=== PATIENT | female | born 1935 | race African-American/Black ===

== ENCOUNTER 2021-02-12 14:21 | Emergency (ER) | payer MEDICARE, BC ==
[~2021-02-12] VITALS: Ht 160 cm; Wt 70.8 kg
[2021-02-12] MEDS ORDERED: cloNIDine HCL 0.1 MG TAB PO ONE ×2 (14:30→18:00)
[2021-02-12 14:52] LABS: Basophils # (auto) 0.1 10 ^3/uL (0-0.2); Basophils % (auto) 1.1 % (0.0-2.0); Eosinophils # (auto) 0.1 10 ^3/uL (0-0.8); Eosinophils % (auto) 1.2 % (0.0-7.0); Hematocrit 32.6 % (36.0-46.0); Hemoglobin 10.8 g/dL (12.2-16.2); Lymphocytes # (auto) 1.6 10 ^3/uL (0.4-5.4); Lymphocytes % (auto) 22.7 % (10.0-50.0); Mean Corpuscular Hemoglobin 29.9 pg (28.0-32.0); Mean Corpuscular Hgb Conc. 33.2 g/dL (32.0-36.0); Mean Corpuscular Volume 90.2 fL (80.0-100.0); Monocytes # (auto) 0.8 10 ^3/uL (0-1.3); Monocytes % (auto) 11.6 % (0.0-12.0); Neutrophils # (auto) 4.3 10 ^3/uL (1.6-8.6); Neutrophils % (auto) 63.4 % (37.0-80.0); Nucleated Red Blood Cells % 0.1 %; Red Blood Cells 3.61 10^6/uL (4.0-5.20); Red Cell Distribution Width 19.2 % (11.8-14.3); White Blood Cell 6.9 10^3/uL (4.4-10.8)
[2021-02-12 15:07] LABS: Alanine Aminotransferase 18 U/L (13-56); Anion Gap 7 (5-15); Blood Urea Nitrogen 12 mg/dL (7-18); Calcium 9.2 mg/dL (8.5-10.1); Carbon Dioxide 27 mmol/L (21-32); Chloride 106 mmol/L (98-107); Glucose 65 mg/dL (74-106); Potassium 3.4 mmol/L (3.5-5.1); Sodium 140 mmol/L (136-145)
[2021-02-12 15:12] LABS: Alkaline Phosphatase 170 U/L (45-117); Aspartate Aminotransferase 19 U/L (15-37); BUN/Creatinine Ratio 12.4; Bilirubin, Total 1.4 mg/dL (0.2-1.0); GFR African American 70 mL/min; GFR Non-African American 58 mL/min; Total Protein 7.2 g/dL (6.4-8.2)
[2021-02-12] MEDS ORDERED: POTASSIUM EFFERVESENT TAB 25 MEQ PO ONE (16:00)
[2021-02-12 17:45] VITALS: BP 191/90
== END 2021-02-12 18:12 | disposition home or self-care (01) ==
LOC: ER 14:21
DX: I16.0 Hypertensive urgency (principal); E87.6 Hypokalemia; E11.9 Type 2 diabetes mellitus without complications; R06.00 Dyspnea, unspecified; Z86.73 Personal history of transient ischemic attack (TIA), and cerebral infarction without residual deficits; Z90.710 Acquired absence of both cervix and uterus
CPT/HCPCS: 36415; 71045; 80053; 84484; 85025; 93005

== ENCOUNTER 2021-05-21 22:39 | Inpatient (IN) | payer MEDICARE, BC ==
[~2021-05-21] VITALS: Ht 160 cm; Wt 70.2 kg
[2021-05-22] MEDS ORDERED: dilTIAZem 25 MG/5 ML VIAL IV ONE ×3 (01:39→03:15)
[2021-05-22 01:56] LABS: Basophils # (auto) 0 10 ^3/uL (0-0.2); Basophils % (auto) 0.4 % (0.0-2.0); Eosinophils # (auto) 0 10 ^3/uL (0-0.8); Eosinophils % (auto) 0.2 % (0.0-7.0); Hematocrit 37.4 % (36.0-46.0); Hemoglobin 12.2 g/dL (12.2-16.2); Lymphocytes # (auto) 1.6 10 ^3/uL (0.4-5.4); Lymphocytes % (auto) 20.7 % (10.0-50.0); Mean Corpuscular Hemoglobin 28.8 pg (28.0-32.0); Mean Corpuscular Hgb Conc. 32.7 g/dL (32.0-36.0); Mean Corpuscular Volume 88.3 fL (80.0-100.0); Monocytes # (auto) 0.6 10 ^3/uL (0-1.3); Neutrophils # (auto) 5.4 10 ^3/uL (1.6-8.6); Neutrophils % (auto) 70.7 % (37.0-80.0); Nucleated Red Blood Cells % 0.2 %; Red Blood Cells 4.24 10^6/uL (4.0-5.20); Red Cell Distribution Width 18.3 % (11.8-14.3); White Blood Cell 7.7 10^3/uL (4.4-10.8)
[2021-05-22 02:07] LABS: Albumin 3.7 g/dL (3.4-5.0); Calcium 9.6 mg/dL (8.5-10.1); Magnesium 2.8 mg/dL (1.6-2.6); Potassium 3.2 mmol/L (3.5-5.1)
[2021-05-22 02:13] LABS: BUN/Creatinine Ratio 15.1; Bilirubin, Total 1.5 mg/dL (0.2-1.0); INR 1.28 (0.9-1.15); Total Protein 6.9 g/dL (6.4-8.2)
[2021-05-22] MEDS ORDERED: ASPirin 325 MG TAB PO ONE (03:15)
[2021-05-22] MEDS ORDERED: DOCUSATE SOD 100 MG CAP PO PRN (04:00)
[2021-05-22] MEDS ORDERED: ONDANSETRON HCL 4 MG/2 ML VIAL IV PRN (04:00)
[2021-05-22] MEDS ORDERED: ACETAMINOPHEN 325 MG TAB PO PRN (04:00)
[2021-05-22] MEDS ORDERED: DEXTROSE (50%) 50ML SYRG IV PRN (04:00)
[2021-05-22] MEDS ORDERED: HYDROcodone-ACET 5/325MG TAB PO PRN (04:00)
[2021-05-22] MEDS ORDERED: hydrALAZINE HCL 20 MG/ML VL IV PRN (04:00)
[2021-05-22] MEDS ORDERED: POTASSIUM CHL 20MEQ/100ML 100 ML IV SCH (04:30)
[2021-05-22 05:41] LABS: Albumin 3.5 g/dL (3.4-5.0); Calcium 9.3 mg/dL (8.5-10.1); Potassium 3.5 mmol/L (3.5-5.1)
[2021-05-22 05:44] LABS: Basophils # (auto) 0.1 10 ^3/uL (0-0.2); Basophils % (auto) 0.9 % (0.0-2.0); Eosinophils # (auto) 0 10 ^3/uL (0-0.8); Eosinophils % (auto) 0.2 % (0.0-7.0); Hematocrit 37.9 % (36.0-46.0); Hemoglobin 12.2 g/dL (12.2-16.2); Lymphocytes # (auto) 1.5 10 ^3/uL (0.4-5.4); Lymphocytes % (auto) 20.7 % (10.0-50.0); Mean Corpuscular Hemoglobin 28.3 pg (28.0-32.0); Mean Corpuscular Hgb Conc. 32.3 g/dL (32.0-36.0); Mean Corpuscular Volume 87.6 fL (80.0-100.0); Monocytes # (auto) 0.7 10 ^3/uL (0-1.3); Monocytes % (auto) 9.4 % (0.0-12.0); Neutrophils # (auto) 5.1 10 ^3/uL (1.6-8.6); Neutrophils % (auto) 68.8 % (37.0-80.0); Nucleated Red Blood Cells % 0.1 %; Red Blood Cells 4.33 10^6/uL (4.0-5.20); Red Cell Distribution Width 18.5 % (11.8-14.3); White Blood Cell 7.4 10^3/uL (4.4-10.8)
[2021-05-22 05:46] LABS: BUN/Creatinine Ratio 16.1; Bilirubin, Total 1.3 mg/dL (0.2-1.0); Total Protein 6.8 g/dL (6.4-8.2)
[2021-05-22] MEDS ORDERED: dilTIAZem 125mg/125ml BAG KIT 100 ML IV SCH (06:00)
[2021-05-22] MEDS ORDERED: ALBUTEROL SULF HFA 90MCG INH 200DOSE IN SCH (06:00)
[2021-05-22] MEDS ORDERED: NITROGLYCERIN 0.4 MG SL TAB SL PRN (06:15)
[2021-05-22] MEDS ORDERED: MORPHINE SULFATE INJECTION 2 MG/ML SYRG IV PRN (06:15)
[2021-05-22] MEDS: SODIUM CHLOR 0.9% PF (SALINE LOCK) 10ML VIAL/SYR IV SCH ×3 (06:19→22:00)
[2021-05-22] MEDS: InsuLIN REG 1unit/0.01ml Soln (100units/ml) SC SCH ×4 (07:00→22:00)
[2021-05-22] MEDS: ACCU-CHEK COMFORT CURVE STRIP VI SCH ×4 (07:10→22:00)
[2021-05-22] MEDS: LEVOTHYROXINE SODIUM 25 MCG TAB PO SCH (07:13)
[2021-05-22] MEDS ORDERED: POTASSIUM CHL 20MEQ/50ML 50 ML IV SCH (07:15)
[2021-05-22] MEDS ORDERED: IOHEXOL 350 MG/ML 100ML IJ ONE (08:00)
[2021-05-22] MEDS: POTASSIUM CHL 20MEQ/50ML 50 ML IV SCH ×2 (08:34→09:30)
[2021-05-22] MEDS ORDERED: ZINC SULFATE 220mg CAP or TAB PO SCH (10:00)
[2021-05-22] MEDS ORDERED: HEPARIN SODIUM (PORCINE) 5000 UNITS/ML 1ML VIAL SC SCH (10:00)
[2021-05-22] MEDS: ASPirin 81 mg TAB PO SCH (10:39)
[2021-05-22] MEDS: FAMOTIDINE (10MG/ML) 2ML VL IV SCH (10:39)
[2021-05-22] MEDS: FUROSEMIDE 40 MG/4 ML VIAL IV SCH (10:39)
[2021-05-22] MEDS: MULTIPLE VITAMIN TAB PO SCH (10:40)
[2021-05-22] MEDS: ASCORBIC ACID 500 MG TAB PO SCH ×2 (10:40→19:58)
[2021-05-22] MEDS: CARVEDILOL 12.5 MG TAB PO SCH ×2 (10:40→19:58)
[2021-05-22 11:57] LABS: Urine Bacteria NONE SEEN /hpf (None Seen); Urine Blood Negative /uL (Negative); Urine Hyaline Cast FEW /lpf (0 - 2); Urine Mucus FEW (None Seen); Urine Specific Gravity 1.027 (1.001-1.035); Urine WBC 1 /hpf (0 - 5)
[2021-05-22] MEDS: AZITHROMYCIN 500MG/ 250ML 250 ML IV SCH (13:18)
[2021-05-22] MEDS: ENOXAPARIN SOD 80 MG/0.8ML SYRINGE SC SCH (19:58)
[2021-05-22] MEDS ORDERED: AMIODARONE HCL 150 MG in D5W 5% 100 ML IV ONE (21:15)
[2021-05-22] MEDS ORDERED: AMIODARONE 450mg/250ml AE 250 ML IV SCH (21:30)
[2021-05-22] MEDS ORDERED: AMIODARONE HCL (50 MG/ ML) 3 ML VIAL IV ONE (21:45)
[2021-05-22 22:45] VITALS: BP_SYST 108; BP_SYST 120; BP_DIAS 50; BP_DIAS 73
[2021-05-23] MEDS ORDERED: SIMV10TA84 PO (02:45)
[2021-05-23] MEDS ORDERED: GLIP-110 PO (02:45)
[2021-05-23] MEDS ORDERED: METO-289 PO (02:45)
[2021-05-23] MEDS ORDERED: [UNRECOGNIZED DRUG - CODE] PO (02:45)
[2021-05-23] MEDS ORDERED: OMEP-260 PO (02:45)
[2021-05-23] MEDS ORDERED: LEVO75TA6 PO (02:45)
[2021-05-23] MEDS ORDERED: HYDR25TA5 PO (02:45)
[2021-05-23] MEDS ORDERED: LATA0.0019 EACHEYE (02:45)
[2021-05-23 05:00] VITALS: BP 149/86
[2021-05-23] MEDS: SODIUM CHLOR 0.9% PF (SALINE LOCK) 10ML VIAL/SYR IV SCH ×3 (06:07→21:31)
[2021-05-23] MEDS: ACCU-CHEK COMFORT CURVE STRIP VI SCH ×4 (06:07→21:31)
[2021-05-23] MEDS: LEVOTHYROXINE SODIUM 25 MCG TAB PO SCH (06:08)
[2021-05-23] MEDS: InsuLIN REG 1unit/0.01ml Soln (100units/ml) SC SCH ×4 (06:33→21:43)
[2021-05-23 08:09] LABS: Basophils # (auto) 0 10 ^3/uL (0-0.2); Basophils % (auto) 0.6 % (0.0-2.0); Eosinophils # (auto) 0.1 10 ^3/uL (0-0.8); Hematocrit 37.1 % (36.0-46.0); Lymphocytes # (auto) 1.1 10 ^3/uL (0.4-5.4); Lymphocytes % (auto) 17.2 % (10.0-50.0); Mean Corpuscular Volume 87.9 fL (80.0-100.0); Monocytes # (auto) 0.6 10 ^3/uL (0-1.3); Monocytes % (auto) 9.6 % (0.0-12.0); Neutrophils # (auto) 4.7 10 ^3/uL (1.6-8.6); Neutrophils % (auto) 71.6 % (37.0-80.0); Nucleated Red Blood Cells % 0.2 %; Red Blood Cells 4.22 10^6/uL (4.0-5.20); White Blood Cell 6.6 10^3/uL (4.4-10.8)
[2021-05-23 08:10] LABS: Mean Corpuscular Hemoglobin 28.5 pg (28.0-32.0); Mean Corpuscular Hgb Conc. 32.4 g/dL (32.0-36.0); Red Cell Distribution Width 18.5 % (11.8-14.3)
[2021-05-23 08:36] LABS: Albumin 3.3 g/dL (3.4-5.0); BUN/Creatinine Ratio 17.9; Bilirubin, Total 1.5 mg/dL (0.2-1.0)
[2021-05-23 09:00] VITALS: BP 137/101
[2021-05-23] MEDS: ENOXAPARIN SOD 80 MG/0.8ML SYRINGE SC SCH (10:00)
[2021-05-23] MEDS: ASPirin 81 mg TAB PO SCH (10:00)
[2021-05-23] MEDS: FAMOTIDINE (10MG/ML) 2ML VL IV SCH (10:00)
[2021-05-23] MEDS: FUROSEMIDE 40 MG/4 ML VIAL IV SCH (10:00)
[2021-05-23] MEDS: MULTIPLE VITAMIN TAB PO SCH (10:00)
[2021-05-23] MEDS: AZITHROMYCIN 500MG/ 250ML 250 ML IV SCH (10:00)
[2021-05-23] MEDS ORDERED: POTASSIUM CHL 20MEQ/50ML 50 ML IV ONE (11:00)
[2021-05-23 17:00] VITALS: BP 98/68
[2021-05-23] MEDS: POTASSIUM CHL 20MEQ/50ML 50 ML IV SCH ×2 (19:45→23:04)
[2021-05-23 22:00] VITALS: BP 116/86
[2021-05-23] MEDS ORDERED: METOPROLOL TARTRATE 50 MG TAB PO SCH (22:00)
[2021-05-24] MEDS ORDERED: AMIODARONE 450mg/250ml AE 250 ML IV ONE (03:05)
[2021-05-24] MEDS ORDERED: AMIODARONE 450mg/250ml AE 250 ML IV SCH (03:15)
[2021-05-24 05:00] VITALS: BP 126/78
[2021-05-24] MEDS: SODIUM CHLOR 0.9% PF (SALINE LOCK) 10ML VIAL/SYR IV SCH ×3 (05:36→21:05)
[2021-05-24] MEDS: ACCU-CHEK COMFORT CURVE STRIP VI SCH ×4 (06:07→21:05)
[2021-05-24] MEDS: LEVOTHYROXINE SODIUM 25 MCG TAB PO SCH (06:08)
[2021-05-24] MEDS: InsuLIN REG 1unit/0.01ml Soln (100units/ml) SC SCH ×4 (06:17→21:05)
[2021-05-24 08:47] LABS: Basophils # (auto) 0 10 ^3/uL (0-0.2); Basophils % (auto) 0.3 % (0.0-2.0); Eosinophils # (auto) 0 10 ^3/uL (0-0.8); Eosinophils % (auto) 0.5 % (0.0-7.0); Hematocrit 36.3 % (36.0-46.0); Lymphocytes # (auto) 1.1 10 ^3/uL (0.4-5.4); Lymphocytes % (auto) 16.6 % (10.0-50.0); Mean Corpuscular Hgb Conc. 33.1 g/dL (32.0-36.0); Mean Corpuscular Volume 87.6 fL (80.0-100.0); Monocytes # (auto) 0.6 10 ^3/uL (0-1.3); Monocytes % (auto) 8.5 % (0.0-12.0); Neutrophils # (auto) 4.9 10 ^3/uL (1.6-8.6); Neutrophils % (auto) 74.1 % (37.0-80.0); Nucleated Red Blood Cells % 0.1 %; Red Blood Cells 4.14 10^6/uL (4.0-5.20); Red Cell Distribution Width 18.5 % (11.8-14.3); White Blood Cell 6.6 10^3/uL (4.4-10.8)
[2021-05-24 08:58] VITALS: BP 126/90
[2021-05-24 09:00] LABS: Potassium 3.5 mmol/L (3.5-5.1)
[2021-05-24 09:06] LABS: Albumin 3.4 g/dL (3.4-5.0); BUN/Creatinine Ratio 13.9; Bilirubin, Total 1.6 mg/dL (0.2-1.0); Calcium 8.9 mg/dL (8.5-10.1); Total Protein 6.2 g/dL (6.4-8.2)
[2021-05-24] MEDS: METOPROLOL TARTRATE 50 MG TAB PO SCH ×5 (09:30→21:06)
[2021-05-24] MEDS: MULTIPLE VITAMIN TAB PO SCH (09:36)
[2021-05-24] MEDS: ASPirin 81 mg TAB PO SCH (09:36)
[2021-05-24] MEDS: FAMOTIDINE (10MG/ML) 2ML VL IV SCH (09:37)
[2021-05-24] MEDS: AZITHROMYCIN 250 MG TAB PO SCH (09:37)
[2021-05-24] MEDS: FUROSEMIDE 40 MG/4 ML VIAL IV SCH (09:37)
[2021-05-24] MEDS: AMIODARONE 450mg/250ml AE 250 ML IV SCH (11:15)
[2021-05-24 12:55] VITALS: BP 141/101
[2021-05-24 14:15] VITALS: BP 139/107
[2021-05-24] MEDS: RIVAROXABAN 15 MG TAB PO SCH (16:57)
[2021-05-24 22:00] VITALS: BP 128/75
[2021-05-25] MEDS: AMIODARONE 450mg/250ml AE 250 ML IV SCH (03:44)
[2021-05-25] MEDS: SODIUM CHLOR 0.9% PF (SALINE LOCK) 10ML VIAL/SYR IV SCH ×3 (06:11→21:19)
[2021-05-25] MEDS: LEVOTHYROXINE SODIUM 25 MCG TAB PO SCH (06:16)
[2021-05-25] MEDS: InsuLIN REG 1unit/0.01ml Soln (100units/ml) SC SCH ×4 (06:16→21:15)
[2021-05-25] MEDS: ACCU-CHEK COMFORT CURVE STRIP VI SCH ×4 (06:17→21:15)
[2021-05-25] MEDS: ASPirin 81 mg TAB PO SCH (08:30)
[2021-05-25] MEDS: AZITHROMYCIN 250 MG TAB PO SCH (08:30)
[2021-05-25] MEDS: MULTIPLE VITAMIN TAB PO SCH (08:30)
[2021-05-25] MEDS: FAMOTIDINE (10MG/ML) 2ML VL IV SCH (08:31)
[2021-05-25] MEDS: FUROSEMIDE 40 MG/4 ML VIAL IV SCH (08:36)
[2021-05-25] MEDS: METOPROLOL TARTRATE 50 MG TAB PO SCH ×2 (08:36→21:19)
[2021-05-25 09:00] VITALS: BP 131/99
[2021-05-25] MEDS: AMIODARONE HCL 200 MG TAB PO SCH ×2 (09:44→21:19)
[2021-05-25 10:37] LABS: Mean Corpuscular Hemoglobin 29.1 pg (28.0-32.0)
[2021-05-25 10:39] LABS: Hemoglobin 12.8 g/dL (12.2-16.2); Mean Corpuscular Hgb Conc. 32.9 g/dL (32.0-36.0); Mean Corpuscular Volume 88.5 fL (80.0-100.0); Red Cell Distribution Width 18.7 % (11.8-14.3)
[2021-05-25 10:58] LABS: Albumin 3.2 g/dL (3.4-5.0); Calcium 8.8 mg/dL (8.5-10.1); Potassium 3.1 mmol/L (3.5-5.1)
[2021-05-25 11:02] LABS: Bilirubin, Total 2.2 mg/dL (0.2-1.0)
[2021-05-25 11:18] LABS: Basophils % (manual) 0 (0.0-2.0); Blast Cells 0; Eosinophils % (manual) 0 (0-7); Metamyelocytes % 0; Myelocytes % 0; Promyelocytes % 0; Reactive Lymphocytes 0; White Blood Cell 30.7 10^3/uL (4.4-10.8)
[2021-05-25 12:10] LABS: Band Neutrophils % (manual) 4; Lymphocytes % (manual) 4 (10.0-50.0); Monocytes % (manual) 7 (0-12)
[2021-05-25 13:00] VITALS: BP 109/69
[2021-05-25] MEDS ORDERED: cefTRIAXone 1GM/50ML D5W 50 ML IV ONE (16:30)
[2021-05-25 17:00] VITALS: BP 117/77
[2021-05-25] MEDS: RIVAROXABAN 15 MG TAB PO SCH (17:01)
[2021-05-25 22:00] VITALS: BP 121/63
[2021-05-26 05:00] VITALS: BP 120/66
[2021-05-26] MEDS: SODIUM CHLOR 0.9% PF (SALINE LOCK) 10ML VIAL/SYR IV SCH ×3 (06:13→22:10)
[2021-05-26] MEDS: InsuLIN REG 1unit/0.01ml Soln (100units/ml) SC SCH ×4 (06:14→22:00)
[2021-05-26] MEDS: LEVOTHYROXINE SODIUM 25 MCG TAB PO SCH (06:14)
[2021-05-26 07:35] LABS: Hematocrit 35.9 % (36.0-46.0); Hemoglobin 12.3 g/dL (12.2-16.2); Mean Corpuscular Hemoglobin 29.7 pg (28.0-32.0); Mean Corpuscular Hgb Conc. 34.3 g/dL (32.0-36.0); Mean Corpuscular Volume 86.4 fL (80.0-100.0); Red Blood Cells 4.15 10^6/uL (4.0-5.20); Red Cell Distribution Width 18.6 % (11.8-14.3)
[2021-05-26 07:48] LABS: White Blood Cell 30.8 10^3/uL (4.4-10.8)
[2021-05-26 07:49] LABS: Basophils % (manual) 0 (0.0-2.0); Blast Cells 0; Eosinophils % (manual) 0 (0-7); Metamyelocytes % 0; Myelocytes % 0; Promyelocytes % 0; Reactive Lymphocytes 0
[2021-05-26 07:50] LABS: Potassium 3.3 mmol/L (3.5-5.1)
[2021-05-26 07:57] LABS: Albumin 2.6 g/dL (3.4-5.0); BUN/Creatinine Ratio 12.4; Total Protein 5.4 g/dL (6.4-8.2)
[2021-05-26 08:00] VITALS: BP 115/63
[2021-05-26] MEDS ORDERED: dilTIAZem 25 MG/5 ML VIAL IV PRN ×2 (08:15→08:30)
[2021-05-26 08:23] LABS: Band Neutrophils % (manual) 5; Lymphocytes % (manual) 5 (10.0-50.0); Monocytes % (manual) 6 (0-12)
[2021-05-26] MEDS ORDERED: cefTRIAXone 1GM/50ML D5W 50 ML IV SCH (09:00)
[2021-05-26] MEDS ORDERED: POTASSIUM CHL 20 Meq TABLET PO ONE (09:00)
[2021-05-26] MEDS: FAMOTIDINE (10MG/ML) 2ML VL IV SCH (09:48)
[2021-05-26] MEDS: AMIODARONE HCL 200 MG TAB PO SCH ×2 (09:48→22:11)
[2021-05-26] MEDS: ASPirin 81 mg TAB PO SCH (09:48)
[2021-05-26] MEDS: METOPROLOL TARTRATE 50 MG TAB PO SCH ×2 (09:49→22:11)
[2021-05-26] MEDS: MULTIPLE VITAMIN TAB PO SCH (09:49)
[2021-05-26] MEDS: AZITHROMYCIN 250 MG TAB PO SCH (09:49)
[2021-05-26] MEDS: FUROSEMIDE 40 MG/4 ML VIAL IV SCH (09:50)
[2021-05-26] MEDS: AZITHROMYCIN 500MG/ 250ML 250 ML IV SCH (10:00)
[2021-05-26] MEDS: ACCU-CHEK COMFORT CURVE STRIP VI SCH ×3 (11:30→22:11)
[2021-05-26 17:00] VITALS: BP 96/65
[2021-05-26] MEDS: SODIUM CHLORIDE 0.9% 1,000 ML IV SCH (18:00)
[2021-05-26] MEDS: RIVAROXABAN 15 MG TAB PO SCH (18:21)
[2021-05-27 05:00] VITALS: BP 110/61
[2021-05-27] MEDS: SODIUM CHLOR 0.9% PF (SALINE LOCK) 10ML VIAL/SYR IV SCH ×2 (05:47→14:00)
[2021-05-27] MEDS: SODIUM CHLORIDE 0.9% 1,000 ML IV SCH (06:05)
[2021-05-27] MEDS: LEVOTHYROXINE SODIUM 25 MCG TAB PO SCH (06:31)
[2021-05-27] MEDS: InsuLIN REG 1unit/0.01ml Soln (100units/ml) SC SCH ×3 (06:32→17:00)
[2021-05-27] MEDS: ACCU-CHEK COMFORT CURVE STRIP VI SCH ×3 (06:32→17:29)
[2021-05-27 06:57] LABS: Basophils # (auto) 0 10 ^3/uL (0-0.2); Basophils % (auto) 0.1 % (0.0-2.0); Eosinophils # (auto) 0 10 ^3/uL (0-0.8); Eosinophils % (auto) 0.1 % (0.0-7.0); Hematocrit 36.1 % (36.0-46.0); Hemoglobin 12.1 g/dL (12.2-16.2); Lymphocytes # (auto) 0.9 10 ^3/uL (0.4-5.4); Lymphocytes % (auto) 4.1 % (10.0-50.0); Mean Corpuscular Hemoglobin 29.3 pg (28.0-32.0); Mean Corpuscular Hgb Conc. 33.5 g/dL (32.0-36.0); Mean Corpuscular Volume 87.5 fL (80.0-100.0); Monocytes % (auto) 8.8 % (0.0-12.0); Neutrophils # (auto) 19.6 10 ^3/uL (1.6-8.6); Neutrophils % (auto) 86.9 % (37.0-80.0); Red Blood Cells 4.13 10^6/uL (4.0-5.20); Red Cell Distribution Width 18.3 % (11.8-14.3); White Blood Cell 22.6 10^3/uL (4.4-10.8)
[2021-05-27 07:30] LABS: Albumin 2.4 g/dL (3.4-5.0); Potassium 3.2 mmol/L (3.5-5.1)
[2021-05-27 07:32] LABS: BUN/Creatinine Ratio 14.6
[2021-05-27 07:35] LABS: Bilirubin, Total 1.7 mg/dL (0.2-1.0); Total Protein 5.1 g/dL (6.4-8.2)
[2021-05-27 08:00] VITALS: BP 104/67
[2021-05-27 09:00] VITALS: BP 104/67
[2021-05-27] MEDS: AZITHROMYCIN 500MG/ 250ML 250 ML IV SCH ×2 (09:44→10:00)
[2021-05-27] MEDS: FAMOTIDINE (10MG/ML) 2ML VL IV SCH (09:44)
[2021-05-27] MEDS: AMIODARONE HCL 200 MG TAB PO SCH ×2 (09:45→23:32)
[2021-05-27] MEDS: METOPROLOL TARTRATE 50 MG TAB PO SCH ×2 (09:45→23:34)
[2021-05-27] MEDS: ASPirin 81 mg TAB PO SCH (09:45)
[2021-05-27] MEDS: MULTIPLE VITAMIN TAB PO SCH (09:46)
[2021-05-27] MEDS: AZITHROMYCIN 250 MG TAB PO SCH ×2 (09:46→10:25)
[2021-05-27] MEDS ORDERED: DIGOXIN (250MCG/ML) 2 ML AMPULE IV ONE (10:45)
[2021-05-27 13:00] VITALS: BP 98/49
[2021-05-27 17:00] VITALS: BP 95/70
[2021-05-27] MEDS: RIVAROXABAN 15 MG TAB PO SCH (17:46)
[2021-05-27 22:26] VITALS: BP 95/69
[2021-05-27 23:29] LABS: Urine Bacteria FEW /hpf (None Seen); Urine WBC 9 /hpf (0 - 5)
[2021-05-27 23:41] LABS: Urine Blood 3+ /uL (Negative)
[2021-05-27 23:42] LABS: Urine Specific Gravity 1.015 (1.001-1.035)
[2021-05-28] MEDS: SODIUM CHLOR 0.9% PF (SALINE LOCK) 10ML VIAL/SYR IV SCH ×2 (01:15→01:41)
[2021-05-28] MEDS: ACCU-CHEK COMFORT CURVE STRIP VI SCH ×3 (01:17→11:41)
[2021-05-28] MEDS: InsuLIN REG 1unit/0.01ml Soln (100units/ml) SC SCH ×3 (01:17→11:30)
[2021-05-28 05:20] VITALS: BP 123/63
[2021-05-28] MEDS: LEVOTHYROXINE SODIUM 25 MCG TAB PO SCH (06:15)
[2021-05-28 07:01] LABS: Basophils # (auto) 0 10 ^3/uL (0-0.2); Basophils % (auto) 0.1 % (0.0-2.0); Eosinophils # (auto) 0.3 10 ^3/uL (0-0.8); Eosinophils % (auto) 2.1 % (0.0-7.0); Hematocrit 33.6 % (36.0-46.0); Hemoglobin 11.2 g/dL (12.2-16.2); Lymphocytes % (auto) 7.2 % (10.0-50.0); Mean Corpuscular Hemoglobin 29.2 pg (28.0-32.0); Mean Corpuscular Hgb Conc. 33.4 g/dL (32.0-36.0); Mean Corpuscular Volume 87.4 fL (80.0-100.0); Monocytes # (auto) 1.4 10 ^3/uL (0-1.3); Monocytes % (auto) 9.4 % (0.0-12.0); Neutrophils # (auto) 11.6 10 ^3/uL (1.6-8.6); Neutrophils % (auto) 81.2 % (37.0-80.0); Nucleated Red Blood Cells % 0.1 %; Red Blood Cells 3.84 10^6/uL (4.0-5.20); Red Cell Distribution Width 18.6 % (11.8-14.3); White Blood Cell 14.3 10^3/uL (4.4-10.8)
[2021-05-28 07:07] LABS: BUN/Creatinine Ratio 15.9; Calcium 7.8 mg/dL (8.5-10.1); Potassium 3.4 mmol/L (3.5-5.1)
[2021-05-28 07:08] LABS: Bilirubin, Total 1.2 mg/dL (0.2-1.0); Total Protein 4.4 g/dL (6.4-8.2)
[2021-05-28 08:00] VITALS: BP 105/58
[2021-05-28 09:05] VITALS: BP 105/58
[2021-05-28] MEDS ORDERED: DIGOXIN 0.125 MG TAB PO SCH (10:00)
[2021-05-28] MEDS: METOPROLOL TARTRATE 50 MG TAB PO SCH (10:00)
[2021-05-28] MEDS: FAMOTIDINE (10MG/ML) 2ML VL IV SCH (10:30)
[2021-05-28] MEDS: AMIODARONE HCL 200 MG TAB PO SCH (10:30)
[2021-05-28] MEDS: AZITHROMYCIN 500MG/ 250ML 250 ML IV SCH (10:30)
[2021-05-28] MEDS: ASPirin 81 mg TAB PO SCH (10:30)
[2021-05-28] MEDS: MULTIPLE VITAMIN TAB PO SCH (10:31)
[2021-05-28] MEDS ORDERED: MET50T PO (11:02)
[2021-05-28] MEDS ORDERED: ASPI1CHW15 PO (11:02)
[2021-05-28] MEDS ORDERED: DOXY-111 PO (11:02)
[2021-05-28] MEDS ORDERED: DIGO1TAB48 PO (11:02)
[2021-05-28] MEDS ORDERED: RIV15T PO (11:02)
[2021-05-28 11:43] VITALS: BP 101/53
[2021-05-28 12:37] VITALS: BP 101/53
== END 2021-05-28 13:45 | disposition home or self-care (01) | DRG 291 ==
LOC: ER 22:39 → TELE 05-22 06:07 → TELE-WESTW 05-22 22:45
PROVIDERS: ADMIT Nurse Practitioner Family; ATTEND Internal Medicine
PROC: 05HB33Z Insertion of Infusion Device into Right Basilic Vein, Percutaneous Approach (ICD-10-PCS; principal; 2021-05-24)
PROC: B54MZZA Ultrasonography of Right Upper Extremity Veins, Guidance (ICD-10-PCS; 2021-05-24)
DX: I13.0 Hypertensive heart and chronic kidney disease with heart failure and stage 1 through stage 4 chronic kidney disease, or unspecified chronic kidney disease (principal); J18.9 Pneumonia, unspecified organism; I50.23 Acute on chronic systolic (congestive) heart failure; N17.0 Acute kidney failure with tubular necrosis; I48.91 Unspecified atrial fibrillation; E87.6 Hypokalemia; G47.00 Insomnia, unspecified; E03.9 Hypothyroidism, unspecified; E11.22 Type 2 diabetes mellitus with diabetic chronic kidney disease; R31.9 Hematuria, unspecified; R74.01 Elevation of levels of liver transaminase levels; R79.89 Other specified abnormal findings of blood chemistry; Z20.822 Contact with and (suspected) exposure to COVID-19; R41.0 Disorientation, unspecified; I16.0 Hypertensive urgency; N18.30 Chronic kidney disease, stage 3 unspecified; Z83.3 Family history of diabetes mellitus; Z86.73 Personal history of transient ischemic attack (TIA), and cerebral infarction without residual deficits; Z90.710 Acquired absence of both cervix and uterus
CPT/HCPCS: 36415; 70450; 70551; 71045; 71046; 71275; 80053; 81001; 82962; 83036; 83605; 83735; 83880; 84443; 84484; 85007; 85025; 85027; 85379; 85610; 87040; 87426; 93005; 93306; 96365; 96366; 96367; 96372; 96376; G0378; J1815; J3480; J3490; J7060

== ENCOUNTER 2021-06-28 03:27 | Inpatient (IN) | payer MEDICARE, BC ==
[~2021-06-28] VITALS: Ht 160 cm; Wt 62.1 kg
[~2021-06-28 03:27] MED LIST: ASPI1CHW15 PO; DIGO1TAB48 PO; DOXY-111 PO; GLIP-110 PO; LEVO75TA6 PO; MET50T PO; OMEP-260 PO; RIV15T PO; SIMV10TA84 PO
[2021-06-28] MEDS ORDERED: DEXTROSE 10% 250 ML IV ONE (08:15)
[2021-06-28] MEDS ORDERED: ONDANSETRON HCL 4 MG/2 ML VIAL ONE (09:24)
[2021-06-28 09:42] LABS: Albumin 3.3 g/dL (3.4-5.0); Potassium 3.7 mmol/L (3.5-5.1)
[2021-06-28 09:45] LABS: Basophils # (auto) 0 10 ^3/uL (0-0.2); Basophils % (auto) 0.2 % (0.0-2.0); Eosinophils # (auto) 0 10 ^3/uL (0-0.8); Eosinophils % (auto) 0.1 % (0.0-7.0); Hematocrit 40.2 % (36.0-46.0); Hemoglobin 13.2 g/dL (12.2-16.2); Lymphocytes # (auto) 0.3 10 ^3/uL (0.4-5.4); Lymphocytes % (auto) 4.9 % (10.0-50.0); Mean Corpuscular Hgb Conc. 32.8 g/dL (32.0-36.0); Mean Corpuscular Volume 88.4 fL (80.0-100.0); Monocytes # (auto) 0.6 10 ^3/uL (0-1.3); Monocytes % (auto) 8.9 % (0.0-12.0); Neutrophils # (auto) 6.2 10 ^3/uL (1.6-8.6); Neutrophils % (auto) 85.9 % (37.0-80.0); Nucleated Red Blood Cells % 0.2 %; Red Blood Cells 4.54 10^6/uL (4.0-5.20); Red Cell Distribution Width 17.8 % (11.8-14.3); White Blood Cell 7.2 10^3/uL (4.4-10.8)
[2021-06-28 09:47] LABS: BUN/Creatinine Ratio 8.5; Bilirubin, Total 0.6 mg/dL (0.2-1.0); Total Protein 7.1 g/dL (6.4-8.2)
[2021-06-28] MEDS ORDERED: NIFE1TAB31 PO (10:05)
[2021-06-28] MEDS ORDERED: METO25TA5 PO (10:05)
[2021-06-28] MEDS ORDERED: AMIO200T33 PO (10:05)
[2021-06-28] MEDS ORDERED: DEXTROSE 10% 1,000 ML IV ONE ×2 (10:30→16:15)
[2021-06-28] MEDS ORDERED: MORPHINE SULFATE INJECTION 2 MG/ML SYRG IV PRN (12:15)
[2021-06-28] MEDS ORDERED: NITROGLYCERIN 0.4 MG SL TAB SL PRN (12:15)
[2021-06-28] MEDS ORDERED: DEXTROSE (50%) 50ML SYRG IV PRN (17:15)
[2021-06-28] MEDS: InsuLIN REG 1unit/0.01ml Soln (100units/ml) SC SCH (22:00)
[2021-06-28] MEDS: ACCU-CHEK COMFORT CURVE STRIP VI SCH (22:00)
[2021-06-28] MEDS: ATORVASTATIN 20 MG TAB PO SCH (23:00)
[2021-06-28] MEDS: AMIODARONE HCL 200 MG TAB PO SCH (23:00)
[2021-06-28] MEDS: METOPROLOL TARTRATE 50 MG TAB PO SCH (23:00)
[2021-06-29] MEDS: InsuLIN REG 1unit/0.01ml Soln (100units/ml) SC SCH ×4 (06:40→22:00)
[2021-06-29] MEDS: ACCU-CHEK COMFORT CURVE STRIP VI SCH ×3 (06:40→17:00)
[2021-06-29 07:24] LABS: Hematocrit 31.8 % (36.0-46.0); Hemoglobin 10.7 g/dL (12.2-16.2); Mean Corpuscular Hemoglobin 29.3 pg (28.0-32.0); Mean Corpuscular Hgb Conc. 33.7 g/dL (32.0-36.0); Red Blood Cells 3.66 10^6/uL (4.0-5.20); Red Cell Distribution Width 17.9 % (11.8-14.3); White Blood Cell 4.6 10^3/uL (4.4-10.8)
[2021-06-29 07:29] LABS: Basophils % (manual) 0 (0.0-2.0); Blast Cells 0; Eosinophils % (manual) 0 (0-7); Metamyelocytes % 0; Myelocytes % 0; Promyelocytes % 0; Reactive Lymphocytes 0
[2021-06-29 07:39] LABS: Potassium 4.1 mmol/L (3.5-5.1)
[2021-06-29 07:43] LABS: Albumin 2.3 g/dL (3.4-5.0); BUN/Creatinine Ratio 7.1; Calcium 8.1 mg/dL (8.5-10.1)
[2021-06-29 07:45] LABS: Bilirubin, Total 0.5 mg/dL (0.2-1.0); Total Protein 5.4 g/dL (6.4-8.2)
[2021-06-29] MEDS: LEVOTHYROXINE SODIUM 25 MCG TAB PO SCH (07:48)
[2021-06-29 08:04] LABS: Band Neutrophils % (manual) 3; Lymphocytes % (manual) 16 (10.0-50.0); Monocytes % (manual) 19 (0-12)
[2021-06-29] MEDS: ASPirin 81 mg TAB PO SCH (10:00)
[2021-06-29] MEDS: ENOXAPARIN SOD 80 MG/0.8ML SYRINGE SC SCH (10:00)
[2021-06-29] MEDS: METOPROLOL TARTRATE 50 MG TAB PO SCH ×2 (10:00→17:45)
[2021-06-29] MEDS: AMIODARONE HCL 200 MG TAB PO SCH ×2 (10:00→17:45)
[2021-06-29] MEDS: NIFEdipine ER 30 MG TAB PO SCH (10:00)
[2021-06-29] MEDS ORDERED: PANTOPRAZOLE 40 MG TAB PO ONE (17:00)
[2021-06-30] MEDS: ACCU-CHEK COMFORT CURVE STRIP VI SCH ×4 (00:33→17:00)
[2021-06-30] MEDS: ATORVASTATIN 20 MG TAB PO SCH (00:47)
[2021-06-30 01:18] VITALS: BP 145/77
[2021-06-30 06:00] VITALS: BP 143/67
[2021-06-30] MEDS: InsuLIN REG 1unit/0.01ml Soln (100units/ml) SC SCH ×3 (06:41→17:00)
[2021-06-30] MEDS: LEVOTHYROXINE SODIUM 25 MCG TAB PO SCH (06:42)
[2021-06-30 07:52] LABS: Potassium 4.4 mmol/L (3.5-5.1)
[2021-06-30 07:59] LABS: BUN/Creatinine Ratio 9.4; Calcium 8.5 mg/dL (8.5-10.1); Magnesium 2.8 mg/dL (1.6-2.6)
[2021-06-30 09:26] VITALS: BP 139/65
[2021-06-30] MEDS: ASPirin 81 mg TAB PO SCH (09:35)
[2021-06-30] MEDS: AMIODARONE HCL 200 MG TAB PO SCH (09:36)
[2021-06-30] MEDS: METOPROLOL TARTRATE 50 MG TAB PO SCH (09:36)
[2021-06-30] MEDS: ENOXAPARIN SOD 80 MG/0.8ML SYRINGE SC SCH (09:37)
[2021-06-30] MEDS: NIFEdipine ER 30 MG TAB PO SCH (09:37)
[2021-06-30] MEDS ORDERED: PANTOPRAZOLE 40 MG TAB PO SCH (10:00)
[2021-06-30 12:58] VITALS: BP 136/68
== END 2021-06-30 17:40 | disposition home health service (06) | DRG 637 ==
LOC: EDBD 03:27 → ER 03:39 → TELE 12:14 → TELE-EAST 06-29 22:10
PROVIDERS: ADMIT Internal Medicine; ATTEND Internal Medicine
DX: E11.649 Type 2 diabetes mellitus with hypoglycemia without coma (principal); U07.1 COVID-19; G93.41 Metabolic encephalopathy; I48.20 Chronic atrial fibrillation, unspecified; I13.0 Hypertensive heart and chronic kidney disease with heart failure and stage 1 through stage 4 chronic kidney disease, or unspecified chronic kidney disease; I50.22 Chronic systolic (congestive) heart failure; D68.59 Other primary thrombophilia; N17.9 Acute kidney failure, unspecified; K21.9 Gastro-esophageal reflux disease without esophagitis; E03.9 Hypothyroidism, unspecified; E11.22 Type 2 diabetes mellitus with diabetic chronic kidney disease; E78.5 Hyperlipidemia, unspecified; N18.9 Chronic kidney disease, unspecified; Z96.659 Presence of unspecified artificial knee joint; Z86.73 Personal history of transient ischemic attack (TIA), and cerebral infarction without residual deficits; Z79.899 Other long term (current) drug therapy; Z83.3 Family history of diabetes mellitus; Z90.710 Acquired absence of both cervix and uterus; Z79.84 Long term (current) use of oral hypoglycemic drugs
CPT/HCPCS: 36415; 70450; 71045; 80048; 80053; 80162; 82962; 83735; 84100; 84439; 84443; 85007; 85025; 85027; 87426; 93005; 94760; 96360; 96361; 99291; G0378; J2405

== ENCOUNTER 2025-02-23 15:25 | Inpatient (IN) | payer MEDICARE, BC ==
[~2025-02-23] VITALS: Ht 160 cm; Wt 71.0 kg
[~2025-02-23 15:25] MED LIST changes: +ASPI-736 PO; -ASPI1CHW15 PO; -DIGO1TAB48 PO; -DOXY-111 PO; -GLIP-110 PO; -MET50T PO; +NIFE1TAB31 PO; -OMEP-260 PO; +SIMV10TA20 PO; -SIMV10TA84 PO
--- NOTE | 2025-02-23 15:45 | ECG ---
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
--- NOTE | 2025-02-23 15:51 | ED.PDOC ---
History of Present Illness HPI Comments 89-year-old female presents with a chief complaint of headache x 2 months. Patient states that her pain has been localized to her left temporal region, radiating down her left neck into her shoulder. Patient mentions that this pain has been going on for the past 2 months and has been trying OTC medications like Tylenol and using Lidocaine patches that she states have not been alleviating her pain. Chief Complaint: Headache Time Seen by MD: 15:48 Primary Care Provider: TAMMIE Larsen Notes: Medications, Allergies Allergies: Coded Allergies: NO KNOWN ALLERGIES (Unverified , 02/12/21) Home Meds Active Scripts Rivaroxaban (Xarelto Tablet) 15 Mg Tb, 15 MG PO QPM, #30 TAB Prov:DEVAN DANIEL MD 05/28/21 Aspirin (Aspirin Low Strength) 81 Mg Chw, 81 MG PO DAILY, #30 TAB.CHEW Prov:DEVAN DANIEL MD 05/28/21 Reported Medications Nifedipine (Nifedipine Er) 30 Mg Tab, 1 TAB PO DAILY, #90 TAB 1 Refill 06/28/21 Simvastatin (Simvastatin) 10 Mg Tab, 1 TAB PO 05/23/21 Levothyroxine Sodium (Levothyroxine Sodium) 75 Mcg Tab, 1 TAB PO DAILYPRN 05/23/21 Information Source: Patient, Spouse Mode of Arrival: Ambulatory Severity: Moderate Timing: Months Duration: Since onset Prehospital treatment: None Past Medical History PAST MEDICAL HISTORY: DM, HTN Surgical History: Hysterectomy ARABIC TEACHER History: Denies all ARABIC TEACHER Hx Family History Family History: Family hx of DM Social History Smoker: Non-Smoker Alcohol: Denies ETOH Use Drugs: Denies Drug Use Lives In: Home Constitutional: denies: chills, diaphoresis, fatigue, fever, malaise, sweats, weakness, others EENTM: denies: blurred vision, double vision, ear bleeding, ear discharge, ear drainage, ear pain, ear ringing, eye pain, eye redness, hearing loss, mouth pain, mouth swelling, nasal discharge, nose bleeding, nose congestion, nose pain, photophobia, tearing, throat pain, throat swelling, voice changes, others Respiratory: denies: cough, hemoptysis, orthopnea, SOB at rest, shortness of breath, SOB with excertion, stridor, wheezing, others Cardiovascular: denies: chest pain, dizzy spells, diaphoresis, Dyspnea on exert ion, edema, irregular heart beat, left arm pain, lightheadedness, palpitations, PND, syncope, others Gastrointestinal: denies: abdomen distended, abdominal pain, blood streaked bowels, constipated, diarrhea, dysphagia, difficulty swallowing, hematemesis, melena, nausea, poor appetite, poor fluid intake, rectal bleeding, rectal pain, vomiting, others Genitourinary: denies: abnormal vagina bleeding, burning, dyspareunia, dysuria, flank pain, frequency, hematuria, incontinence, pain, , vagina discharge, urgency, others Neurological: reports: headache; denies: dizziness, fainting, left sided numbness, left sided weakness, numbness, paresthesia, pre-existing deficit, ri ght sided numbness, right sided weakness, seizure, speech problems, tingling, tremors, weakness, others Musculoskeletal: denies: back pain, gout, joint pain, joint swelling, muscle pain, muscle stiffness, neck pain, others Integumetry: denies: bruises, change in color, change in hair/nails, dryness, laceration, lesions, lumps, rash, wounds, others Allergic/Immunocompromised: denies: Difficulty Healing, Frequent Infections, Hives, Itching, others Hematologic/Lymphatic: denies: anemia, blood clots, easy bleeding, easy bruising, swollen glands, others Endocrine: denies: excessive hunger, excessive sweating, excessive thirst, excessive urination, flushing, intolerance to cold, intolerance to heat, unexplained weight gain, unexplained weight loss, others Psychiatric: denies: anxiety, bipolar disorder, depression, hopeless, panic disorder, schizophrenia, sleepless, suicidal, others All Other Systems: Reviewed and Negative Physical Exam General Appearance: Moderate Distress, Normal HEENT: Normal ENT Inspection, Pharynx Normal, TMs Normal Neck: Full Range of Motion, Non-Tender, Normal, Normal Inspection Respiratory: Chest Non-Tender, Lungs Clear, No Accessory Muscle Use, No Respiratory Distress, Normal Breath Sounds Cardiovascular: No Edema, No JVD, No Murmur, No Gallop, Normal Peripheral Pulses, Regular Rate/Rhythm Breast Exam: Deferred Gastrointestinal: No Organomegaly, Non Tender, No Pulsatile Mass, Normal Bowel Sounds, Soft Genitalia: Deferred Pelvic: Deferred Rectal: Deferred Extremities: No calf tenderness, Normal capillary refill, Normal inspection, Normal range of motion, Non-tender, No pedal edema Musculoskeletal : Apperance: Normal Neurologic: Alert, funeral greeter II-XII nml as Tested, No Motor Deficits, Normal Affect, Normal Mood, No Sensory Deficits Cerebellar Function: Normal Reflexes: Normal Skin: Dry, Normal Color, Warm Peripheral Pulses: 3+ Radial (R), 3+ Radial (L) Lymphatic: No Adenopathy Was a procedure done? Was a procedure done?: No Differential Dx Considerations may include: Autonomic disorder Electrolyte imbalance X-Ray, Labs, Meds, VS Vital Signs Date Time Temp Pulse Resp B/P (MAP) Pulse Ox O2 Delivery O2 Flow Rate FiO2 02/23/25 15:37 75 02/23/25 15:28 97.4 72 16 184/86 100 97.4 Lab Test 02/23/25 15:47 Range/Units White Blood Count 7.8 4.4-10.8 10^3/uL Red Blood Count 3.45 L 4.0-5.20 10^6/uL Hemoglobin 9.0 L 12.2-16.2 g/dL Hematocrit 27.7 L 36.0-46.0 % Mean Corpuscular Volume 80.2 80.0-100.0 fL Mean Corpuscular Hemoglobin 26.0 L 28.0-32.0 pg Mean Corpuscular Hemoglobin Concent 32.4 32.0-36.0 g/dL Red Cell Distribution Width 17.4 H 11.8-14.3 % Platelet Count 407 140-450 10^3/uL Mean Platelet Volume 7.5 6.9-10.8 fL Neutrophils (%) (Auto) 66.4 37.0-80.0 % Lymphocytes (%) (Auto) 20.5 10.0-50.0 % Monocytes (%) (Auto) 10.0 0.0-12.0 % Eosinophils (%) (Auto) 2.9 0.0-7.0 % Basophils (%) (Auto) 0.2 0.0-2.0 % Neutrophils # (Auto) 5.2 1.6-8.6 10 ^3/uL Lymphocytes # (Auto) 1.6 0.4-5.4 10 ^3/uL Monocytes # (Auto) 0.8 0-1.3 10 ^3/uL Eosinophils # (Auto) 0.2 0-0.8 10 ^3/uL Basophils # (Auto) 0 0-0.2 10 ^3/uL Nucleated Red Blood Cells 0.1 % Sodium Level Pending Potassium Level Pending Chloride Level Pending Carbon Dioxide Level Pending Anion Gap Pending Blood Urea Nitrogen Pending Creatinine Pending Glomerular Filtration Rate Calc Pending BUN/Creatinine Ratio Pending Serum Glucose Pending Calcium Level Pending Troponin I High Sensitivity Pending Current Medications Medications (Trade) Dose Ordered Sig/Keiko Route Start Time Stop Time Status Last Admin Acetaminophen/ Hydrocodone Bitart ([place] 10/325MG Tab) 1 tab ONCE ONCE PO 02/23/25 16:00 02/23/25 16:01 DC 02/23/25 16:10 Patient alert. Came in because of headache. Has been having these symptoms for many months. Vitals stable. Possibly need MRI. Ambulating. Explained to the family. Continue monitoring. Time of 1ST Reevaluation: 15:51 Reevaluation 1ST: Unchanged Patient Education/Counseling: Diagnosis, Treatment, Need For Follow Up Family Education/Counseling: No Family Present SEPSIS Sepsis Screen Date sepsis recognized/suspect: Feb 23, 2025 Time Sepsis recognized/suspect: 153 Recent Procedure: No On Antibiotic Therapy: No Respiratory Rate >20: No Heart Rate >90: No Temp<36 C (96.8 F) or >38.3 C: No SBP <90 or MAP <65 mmHG: No New Acute Mental Status Change: No Is the patient on CPAP, BIPAP,: No Physician Orders Troponin-I Hs (02/23/25 15:39) Urinalysis (02/23/25 15:39) Basic Metabolic Panel (02/23/25 15:39) Vital Signs Date Time Temp Pulse Resp B/P (MAP) Pulse Ox O2 Delivery O2 Flow Rate FiO2 02/23/25 15:37 75 02/23/25 15:28 97.4 72 16 184/86 100 97.4 Laboratory Tests Test 02/23/25 15:47 White Blood Count 7.8 10^3/uL (4.4-10.8) Medications Medications Dose Ordered Sig/Keiko Route Start Time Stop Time Status Last Admin Dose Admin Acetaminophen/ Hydrocodone Bitart 1 tab ONCE ONCE PO 02/23/25 16:00 02/23/25 16:01 DC 02/23/25 16:10 Departure 1 Departure Time of Disposition: 16:12 Impression: Primary Impression: Autonomic disorder Disposition: ADMITTED INPATIENT Admit to: Med Surg Condition: Guarded Critical Care Note Critical Care Time?: No Stability Stability form required: No Heart Score Heart Score: Heart Score Response (Comments) Value History N/A 0 EKG N/A 0 Age N/A 0 Risk Factors N/A 0 Troponin N/A 0 Total 0 I personally scribed for GERARDO FERNÁNDEZ MD ([email or web address]) on 02/23/25 at 15:51. Electronically submitted by Liborio Miguel [email or web address]). GERARDO FENRÁNDEZ MD Feb 23, 2025 15:51
[2025-02-23 16:02] LABS: Hematocrit 27.7 % (36.0-46.0); Hemoglobin 9.0 g/dL (12.2-16.2); Mean Corpuscular Hemoglobin 26.0 pg (28.0-32.0); Mean Corpuscular Volume 80.2 fL (80.0-100.0); Nucleated Red Blood Cells % 0.1 %
[2025-02-23 16:06] LABS: Potassium 4.0 mmol/L (3.5-5.1); Sodium 144 mmol/L (136-145)
[2025-02-23 16:07] LABS: Anion Gap 11 (5-15); Carbon Dioxide 24 mmol/L (20-31)
[2025-02-23 16:08] LABS: Calcium 8.9 mg/dL (8.7-10.4)
[2025-02-23] MEDS: HYDROcodone-ACET 10/325MG TAB PO ONE (16:10)
[2025-02-23 16:12] LABS: BUN/Creatinine Ratio 9.9 (10.0-20.0); Blood Urea Nitrogen 14 mg/dL (9-23); Glucose 90 mg/dL (74-106)
[2025-02-23 16:29] LABS: Chloride 109 mmol/L (98-107)
--- NOTE | 2025-02-23 16:55 | DVH ---
EXAM: CT HEAD WITHOUT CONTRAST INDICATION: microvascular TECHNIQUE: CT of the head without intravenous contrast. Radiation Dose Information: CT Dose: CTDI volume is 53 mGy. Dose-length product is 848 mGy*cm The dose indicators for CT are the volume Computed Tomography (CT) Dose Index (CTDIvol) and the Dose Length Product (DLP), and are measured in units of mGy and mGy-cm, respectively. These indicators are not patient dose, but values generated from the CT scanner acquisition factors. The report includes radiation exposure data for exposures received during this examination. COMPARISON: 06/28/2021 FINDINGS: There is no evidence of acute intracranial hemorrhage, extra-axial collection, mass effect, midline s hift, herniation or hydrocephalus. OLD RIGHT FRONTAL LOBE INFARCT SEEN The ventricles, sulci and cisterns are age appropriate. The sarmiento-white differentiation is intact. Patchy periventricular and subcortical white matter hypoattenuation is nonspecific but may be related to small vessel ischemic disease. The visualized paranasal sinuses and mastoid air cells are clear. The surrounding soft tissues and osseous structures are unremarkable. IMPRESSION: 1. No acute intracranial abnormality.
[2025-02-23 22:20] LABS: Magnesium 2.2 mg/dL (1.6-2.6); Triglycerides 69.0 mg/dL (< 150)
[2025-02-23 22:22] LABS: Cholesterol 159.0 mg/dL (< 200)
[2025-02-23 22:27] LABS: HDL Cholesterol 103.0 mg/dL (40-59)
[2025-02-23 22:42] LABS: Lipase 31.0 U/L (12-53)
[2025-02-23] MEDS ORDERED: ENOXAPARIN SOD 40 MG/0.4 ML SYRINGE SC SCH (22:45)
[2025-02-23] MEDS ORDERED: ACETAMINOPHEN 325 MG TAB PO PRN (22:45)
[2025-02-23] MEDS ORDERED: LEVOTHYROXINE SODIUM 25 MCG TAB PO ONE (23:00)
--- NOTE | 2025-02-23 23:28 | DVHHPRES ---
History of Present Illness Resident Creating Document: JOSIAH MARCUS RESIDENT History of Present Illness This is a 89-year-old female with past medical history of cervical spine arthritis, osteoarthritis of bilateral hands, glaucoma, hypertension, hyperlipidemia, hypothyroidism, presented to the ER with chief complain of head ache, in the setting of severely elevated blood pressure. The headache began 4- 5 months ago, worsening for the last 3 weeks. The pain is located in the temporal area, described as intermittent, aching, with the severity of 8/10. The pain is radiating from temporal area to the occipital area, down to neck and left arm. She also complains of associated double vision, difficulty m aintaining balance. She reports that her double vision has been intermittent, binocular, without associated eye pain, ptosis. Reports subjective fever. She does not measure blood pressure at home and reports being compliant on medications. No history of trauma, fall, sick contact. She denies dizziness, photophobia, chest pain, tearing in the eyes or loss of consciousness. PMHx: Osteoarthritis, cervical spine arthritis, glaucoma, hypertension, hyperlipidemia, hypothyroidism, HFrEF (LVEF 30-40%), paroxysmal atrial fibrillation (chads Vasc 5) PSHx: Bilateral knee replacement, rotator cuff surgery, lumbar spinal stenosis surgery Family history: Positive for multiple family members with CVD and diabetes Social history: Smoked 2 packs for 10 years, quit in 2001, occasional alcohol use, no recreational drug use. Lives in house with family. Next of kin . Home medication: Nifedipine 30 mg, levothyroxine 75 mcg, simvastatin 40 mg Allergic history: No known allergies Patient seen and examined at bedside. Her headache has mildly improved, her blood pressure is still elevated. Planning on admitting to telemetry. Cardiovascular: HTN, hyperipidemia Musculoskeletal: Osteoarthritis Renal/: Acute renal failure Endocrine: Hypothyroidism Past Surgical History: Total knee replacement Family History: CAD Smoke: 2 packs per day Drugs: None Lives: with Family Domestic Violence: Neg Past Social History Smoked 2 packs for 10 years, quit in 2001, occasional alcohol use, no recreational drug use. Lives in house with family. Next of kin . Review of Systems Constitutional: Yes: Fever Eyes: Vision change, Other (Double vision) Musculoskeletal: neck pain, arm pain Neurological: Incoordination, Other (Headache) Allergies: Coded Allergies: NO KNOWN ALLERGIES (Unverified , 02/12/21) Medications Current Medications Medications Dose Ordered Sig/Keiko Route Start Time Stop Time Status Last Admin Dose Admin Acetaminophen 325 mg Q4HP PRN PO 02/23/25 22:45 Morphine Sulfate 2 mg Q4HPRN PRN IV 02/23/25 22:45 Nifedipine 60 mg DAILY PO 02/24/25 10:00 Atorvastatin Calcium 40 mg HS PO 02/24/25 22:00 Levothyroxine Sodium 75 mcg QAM@0600 PO 02/24/25 06:00 Heparin Sodium (Porcine) 5,000 units Q12HR SC 02/24/25 10:00 Aspirin 81 mg DAILY PO 02/24/25 10:00 UNV Furosemide 20 mg BIDD IV 02/24/25 06:00 UNV Furosemide 20 mg DAILY IV 02/24/25 10:00 UNV Exam Vital Signs Vital Signs Date Time Temp Pulse Resp B/P (MAP) Pulse Ox O2 Delivery O2 Flow Rate FiO2 02/23/25 20:37 63 14 194/92 (126) 96 02/23/25 16:31 Room Air* 0 21 02/23/25 16:30 97.0 97.0 Exam Patient lying in bed, in no acute distress General: Lucid, afebrile, mucosae are moist Cardiovascular: Regular rhythm and rate, normal S1, S2, presents S4. No murmurs, gallops or rubs Respiratory: Normal ventilation mechanics. Clear lung sounds on auscultation Abdomen: Soft, nontender, no organomegaly, normal bowel sounds MSK/skin: Mobilizes 4 limbs. Skin is dry and warm. Bilateral infrapatellar pitting edema Neurological: Oriented in 3 spheres. No motor no sensitive deficits. Pupils are isocoric and reactive General Appearance: Alert, Oriented X3, Cooperative HEENT: Atraumatic, PERRLA, Mucous membr. moist/pink Respiratory: Clear to auscultation Cardiovascular: Regular rate, Normal S1, Normal S2, Other (S4) Abdominal: Normal bowel sounds, Soft, No tenderness Extremities: Other (Bony enlargement of DIP, bilateral pitting edema grade 2) Skin: No significant lesion Neuro: Other (Slow gait) Psych/Mental Status: Mental status NL, Mood NL Labs/Xrays Labs Test 02/23/25 22:43 02/23/25 15:47 Range/Units White Blood Count 7.8 4.4-10.8 10^3/uL Red Blood Count 3.45 L 4.0-5.20 10^6/uL Hemoglobin 9.0 L 12.2-16.2 g/dL Hematocrit 27.7 L 36.0-46.0 % Mean Corpuscular Volume 80.2 80.0-100.0 fL Mean Corpuscular Hemoglobin 26.0 L 28.0-32.0 pg Mean Corpuscular Hemoglobin Concent 32.4 32.0-36.0 g/dL Red Cell Distribution Width 17.4 H 11.8-14.3 % Platelet Count 407 140-450 10^3/uL Mean Platelet Volume 7.5 6.9-10.8 fL Neutrophils (%) (Auto) 66.4 37.0-80.0 % Lymphocytes (%) (Auto) 20.5 10.0-50.0 % Monocytes (%) (Auto) 10.0 0.0-12.0 % Eosinophils (%) (Auto) 2.9 0.0-7.0 % Basophils (%) (Auto) 0.2 0.0-2.0 % Neutrophils # (Auto) 5.2 1.6-8.6 10 ^3/uL Lymphocytes # (Auto) 1.6 0.4-5.4 10 ^3/uL Monocytes # (Auto) 0.8 0-1.3 10 ^3/uL Eosinophils # (Auto) 0.2 0-0.8 10 ^3/uL Basophils # (Auto) 0 0-0.2 10 ^3/uL Nucleated Red Blood Cells 0.1 % Sodium Level 144 136-145 mmol/L Potassium Level 4.0 3.5-5.1 mmol/L Chloride Level 109 H 98-107 mmol/L Carbon Dioxide Level 24 20-31 mmol/L Anion Gap 11 5-15 Blood Urea Nitrogen 14 9-23 mg/dL Creatinine 1.41 H 0.550-1.02 mg/dL Glomerular Filtration Rate Calc 36 >90 mL/min BUN/Creatinine Ratio 9.9 L 10.0-20.0 Serum Glucose 90 74-106 mg/dL Hemoglobin A1c 6.1 H <5.7 % A1C Calcium Level 8.9 8.7-10.4 mg/dL Phosphorus Level 3.6 2.4-5.1 mg/dL Magnesium Level 2.2 1.6-2.6 mg/dL Troponin I High Sensitivity 5 </=34 ng/L Triglycerides Level 69 < 150 mg/dL Cholesterol Level 159 < 200 mg/dL LDL Cholesterol 33 < 100 mg/dL HDL Cholesterol 103 H 40-59 mg/dL Lipase 31 12-53 U/L Thyroid Stimulating Hormone (TSH) 4.72 0.55-4.78 uIU/mL SEPSIS Sepsis Screen Date sepsis recognized/suspect: Feb 23, 2025 Time Sepsis recognized/suspect: 1629 Recent Procedure: No On Antibiotic Therapy: No Respiratory Rate >20: No Heart Rate >90: No Temp<36 C (96.8 F) or >38.3 C: No SBP <90 or MAP <65 mmHG: No New Acute Mental Status Change: No Is the patient on CPAP, BIPAP,: No Physician Orders Head Without Contrast (02/23/25 16:12) Complete Blood Count (02/24/25 04:00) Comprehensive Metabolic Panel (02/24/25 04:00) Urinalysis (02/23/25 21:51) PTPTT (02/23/25 21:51) Drug Screen (02/23/25 21:51) Allergies (02/23/25 22:43) Code Status (02/23/25 22:43) Acetaminophen Tablet (Tylenol Tablet) (02/23/25 22:45) Condition: Serious (02/23/25 22:43) Clear Liq Diet (02/24/25 Breakfast) Morphine Sulfate Injection (02/23/25 22:45) Oxygen By Nasal Cannula (02/23/25 22:43) Stat Ekg For Chest Pain (02/23/25 22:43) Notify Md Of Changes From Base (02/23/25 22:43) Coal Unloader For 24 Hours (02/23/25 22:43) Emergency Dysrhythmia Protocol (02/23/25 22:43) Rhythm Strips Once Every Shift (02/23/25 22:43) Stool Occult Blood (02/23/25 22:51) Nifedipine Er (Procardia Xl (Time-Releas (02/24/25 10:00) Atorvastatin (Lipitor) (02/24/25 22:00) Levothyroxine Tablet (Synthroid Tablet) (02/23/25 23:00) Levothyroxine Tablet (Synthroid Tablet) (02/24/25 06:00) Heparin Sodium (Porcine) (02/24/25 10:00) Admit (02/23/25 23:09) Aspirin Tablet (02/24/25 10:00) Echo 2d Mode Cardiac Dop (02/23/25 23:09) B-Type Natriuretic Peptide (02/23/25 23:09) Furosemide Injection (Lasix Injection) (02/24/25 06:00) Furosemide Injection (Lasix Injection) (02/24/25 10:00) Strict I & O QSHIFT (02/23/25 23:09) Strict I&O (02/23/25 ) Carotid Duplx W Color Dop (02/24/25 07:00) Vital Signs Date Time Temp Pulse Resp B/P (MAP) Pulse Ox O2 Delivery O2 Flow Rate FiO2 02/23/25 20:37 63 14 194/92 (126) 96 02/23/25 18:36 69 16 02/23/25 16:31 Room Air* 0 21 02/23/25 16:30 97.0 69 16 139/87 (104) 97 97.0 02/23/25 15:37 75 02/23/25 15:28 97.4 72 16 184/86 100 97.4 Laboratory Tests Test 02/23/25 15:47 White Blood Count 7.8 10^3/uL (4.4-10.8) Medications Medications Dose Ordered Sig/Keiko Route Start Time Stop Time Status Last Admin Dose Admin Acetaminophen/ Hydrocodone Bitart 1 tab ONCE ONCE PO 02/23/25 16:00 02/23/25 16:01 DC 02/23/25 16:10 1 TAB Assessment/Plan Assessment/Plan Hypertensive crisis CT head WNL, 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 daily Furosemide IV 20 mg Aspirin 81 p.o. daily Pain management with acetaminophen, morphine Strict I&O Monitor on telemetry Acute kidney injury Baseline unavailable; creatinine 1.41 Strict control of blood pressure Discussed avoiding nephrotoxins like NSAIDS, contrast Low salt diet, maintain hydration Repeat BMP Acute on chronic systolic congestive heart failure (HFrEF, LVEF 30-40%) Paroxysmal atrial fibrillation (chads Vasc 5) - secondary hypercoagulability state Currently on therapeutic enoxaparin. Discontinue rivaroxaban Currently on IV furosemide 20 mg p.o. b.i.d. Indicated carvedilol Ordered new echocardiogram. Pending optimization of GDM T Ordered EKG which showed normal sinus rhythm with altered repolarization secondary to LVH. Patient has history of paroxysmal atrial fibrillation. Hypothyroidism TSH 4.72 Continue home levothyroxine 75 mcg Normocytic Anemia Hemoglobin 9 Iron panel, ferritin ordered Stool occult blood ordered History of osteoarthritis History of glaucoma History of hyperlipidemia Continue atorvastatin 40 mg daily Continue latanoprost eye drops DIET: Cardiac DVT PROPHYLAXIS: Therapeutic enoxaparin CODE STATUS: Goals of care discussed with patient at bedside for more than 36 minutes. Full code DISPOSITION: Med/surge Patient's status and plan discussed with the patient. Case discussed with Dr. Castelan. Plan discussed with: Patient, Spouse, Other (Nurses) My Orders Orders - JOSIAH MARCUS RESIDENT Procedure Category Date Status Time Complete Blood Count LAB 02/24/25 Verified 04:00 Comprehensive LAB 02/24/25 Verified Metabolic Panel 04:00 Urinalysis LAB 02/23/25 Logged 21:51 PTPTT LAB 02/23/25 In Process 21:51 Drug Screen LAB 02/23/25 Logged 21:51 Allergies RETA 02/23/25 In Process 22:43 Code Status CODE 02/23/25 Transmitted 22:43 Acetaminophen Tablet PHA 02/23/25 In Process (Tylenol Tablet) 22:45 Condition: Serious RETA 02/23/25 In Process 22:43 Clear Liq Diet DIET 02/24/25 Transmitted Breakfast Morphine Sulfate PHA 02/23/25 In Process Injection 22:45 Oxygen By Nasal RT 02/23/25 Transmitted Cannula 22:43 Stat Ekg For Chest RETA 02/23/25 In Process Pain 22:43 Notify Md Of Changes RETA 02/23/25 In Process From Base 22:43 Coal Unloader For RETA 02/23/25 In Process 24 Hours 22:43 Emergency Dysrhythmia RETA 02/23/25 In Process Protocol 22:43 Rhythm Strips Once RETA 02/23/25 In Process Every Shift 22:43 Stool Occult Blood LAB 02/23/25 Logged 22:51 Nifedipine Er PHA 02/24/25 In Process (Procardia Xl 10:00 Atorvastatin (Lipitor) PHA 02/24/25 In Process 22:00 Levothyroxine Tablet PHA 02/23/25 Pending (Synthroid Tablet) 23:00 Levothyroxine Tablet PHA 02/24/25 In Process (Synthroid Tablet) 06:00 Heparin Sodium PHA 02/24/25 In Process (Porcine) 10:00 Carotid Duplx W Color US 02/24/25 Logged DOP 07:00 Date of Service: Feb 23, 2025 Billing Provider: CARMEN CASTELAN MD Common Visit Codes: [id number] INP/OBS CARE (HIGH) Secondary Visit Codes: [id number] CARE PLAN 30 MINUTES JOSIAH MARCUS RESIDENT Feb 23, 2025 23:28 WOJCIECH BARNEY RESIDENT Feb 24, 2025 04:46
[2025-02-23 23:29] LABS: INR 1.0 (0.9-1.15); Partial Thromboplastin Time 29.6 SEC (24.5-34.5); Prothrombin Time 10.6 sec (9.3-11.8)
[2025-02-24] VITALS (9 sets, daily range): BP systolic 129–141; BP diastolic 69–77; PULSE 65–79; RESP 12–18; TEMP 97.4–98.6; O2SAT 96–99
[2025-02-24 00:56] LABS: Total Iron Binding Capacity 340.0 ug/dL (250-425)
[2025-02-24 01:00] LABS: Iron 18.0 ug/dL (50-170)
[2025-02-24] MEDS: ATORVASTATIN 20 MG TAB PO ONE (01:06)
[2025-02-24] MEDS: HEPARIN SODIUM (PORCINE) 5000 UNITS/ML 1ML VIAL SC ONE (01:06)
[2025-02-24] MEDS: CARVEDILOL 3.125 MG TAB PO ONE (05:23)
[2025-02-24] MEDS: ONDANSETRON HCL 4 MG/2 ML VIAL IV PRN (05:50)
[2025-02-24] MEDS: LEVOTHYROXINE SODIUM 25 MCG TAB PO SCH (05:50)
[2025-02-24] MEDS: hydrALAZINE HCL 20 MG/ML VL IV PRN (05:51)
[2025-02-24 06:11] LABS: Hemoglobin 9.0 g/dL (12.2-16.2)
[2025-02-24 06:13] LABS: Hematocrit 27.8 % (36.0-46.0); Mean Corpuscular Hemoglobin 26.1 pg (28.0-32.0); Mean Corpuscular Volume 80.7 fL (80.0-100.0); Nucleated Red Blood Cells % 0.1 %
[2025-02-24 06:38] LABS: Albumin 4.4 g/dL (3.2-4.8); Alkaline Phosphatase 81 U/L (46-116); Anion Gap 13 (5-15); BUN/Creatinine Ratio 10.1 (10.0-20.0); Bilirubin, Total 0.6 mg/dL (0.2-1.0); Blood Urea Nitrogen 12 mg/dL (9-23); Calcium 9.4 mg/dL (8.7-10.4); Carbon Dioxide 21 mmol/L (20-31); Potassium 4.0 mmol/L (3.5-5.1); Sodium 142 mmol/L (136-145); Total Protein 7.3 g/dL (5.7-8.2)
[2025-02-24 06:43] LABS: Alanine Aminotransferase < 9 U/L (7-40); Chloride 108 mmol/L (98-107); Glucose 107 mg/dL (74-106)
[2025-02-24] MEDS: FUROSEMIDE 20 MG/2 ML VIAL IV ONE ×2 (07:37→22:25)
[2025-02-24] MEDS: LATANOPROST 0.005 % OPTH(EYE) SOL 2.5ML EACHEYE SCH (08:32)
[2025-02-24 09:16] LABS: Amphetamine Screen, Urine Neg (NEGATIVE)
[2025-02-24 09:17] LABS: Urine Protein, UAD Normal (Negative)
[2025-02-24 09:18] LABS: Barbiturate Scree,Urine Neg (NEGATIVE); Benzodiazephine Screen, Urine Neg (NEGATIVE); Cocaine Screen, Urine Neg (NEGATIVE)
[2025-02-24 09:19] LABS: Cannabinoid Screen, Urine Neg (NEGATIVE); Opiate Scree,Urine Neg (NEGATIVE); Phencyclidine Screen, Urine Neg (NEGATIVE)
--- NOTE | 2025-02-24 09:39 | DVH ---
CLINICAL HISTORY: R/o carotid thromboembolism embolism TECHNIQUE: Horne-scale, Color and Duplex Doppler imaging of the bilateral carotid systems was performe d. COMPARISON: CT HEAD WITHOUT CONTRAST on DOS: 02/23/25, HEAD WITHOUT CONTRAST on DOS: 06/28/21, BRAIN HE AD WO CONTRAST on DOS: 05/24/21, HEAD WITHOUT CONTRAST on DOS: 05/21/21 Findings: Right Carotid system: There is plaque present in the right carotid system. Left Carotid system: There is plaque present in the left carotid system. The following flow velocities were obtained (cm/sec). Right Carotid System: ICA PSV: 75 cm/sec ICA PDV: 12 cm/sec ICA/CCA Ratio: 1.1 Left Carotid System: ICA PSV: 103 cm/sec ICA PDV: 18 cm/sec ICA/CCA Ratio: 1.5 The right and left common carotid and external carotid arteries are patent. There is antegrade flow i n both vertebral arteries and external carotid arteries. IMPRESSION: LESS THAN 50% RIGHT ICA NARROWING. LESS THAN 50% LEFT ICA NARROWING. Estimation of carotid stenosis is based on velocity parameters that correlate the residual internal c arotid diameter with that of the more distal vessel in accordance with the [place] Symptomatic Carotid Endarterectomy Trial (NASCET).
[2025-02-24] MEDS ORDERED: HEPARIN SODIUM (PORCINE) 5000 UNITS/ML 1ML VIAL SC SCH (10:00)
[2025-02-24] MEDS ORDERED: ENOXAPARIN SOD 100 MG/1 ML SYRINGE SC SCH (10:00)
[2025-02-24] MEDS: ENOXAPARIN SOD 100 MG/1 ML SYRINGE SC SCH (10:37)
[2025-02-24] MEDS: CARVEDILOL 3.125 MG TAB PO SCH ×2 (10:39→22:32)
--- NOTE | 2025-02-24 13:07 | DVHSR ---
APPROVED REPORT EXAM: Two-dimensional and M-mode echocardiogram with Doppler and color Doppler. Blood Pressure: 160/69 mmHg INDICATION CHF RISK FACTORS Height: 5'3", Weight: 146 DIMENSIONS LVDd4.1 (3.8-5.7cm)LA (2D)4.7 (1.9-4.0cm)Aortic Root3.2 (2.0-3.7cm) LVDs2.7 (2.5-4.0cm)LA (MM) (1.9-4.0cm)Aortic Cusp Exc0.9 (1.5-2.0cm) EF (%) 60.0 (55-70%)Rt. Atrium3.9 (1.9-4.0cm)Asc. Aorta cm IVSd1.3 (0.7-1.1cm)RV (D) (1.8-2.4cm) PWd1.3 (0.7-1.1cm) Mitral Valve MitralMitral Stenosis E wave1.14m/sMV Mean GR.mmHg A wave0.74m/sMV Peak GR.mmHg E/A ratio1.52D MVAcm2 DECEL [id number] 1/2 Timems Aortic Valve Aortic ValveAortic Stenosis V10.87m/Evelyn Mean GR.5mmHg V21.61m/Evelyn Peak GR.10mmHg LVOT Diameter2.1 (1.8-2.4cm)Doppler AVA1.87cm2 Pulmonic Valve V20.99m/s Tricuspid Valve TR Velocity2.95m/s [id number] Other Information Technically limited study due to body habitus and patient lying flat. Conclusion lvef 65% moderate LVH grade 1 diaistolic dysfunction normal rv function left atrium enlarged no seere valve abnormalities noted
[2025-02-24] MEDS: LOSARTAN POTASSIUM 25 MG TAB PO ONE (13:52)
[2025-02-24] MEDS ORDERED: ACETAMINOPHEN 325 MG TAB PO PRN (14:45)
--- NOTE | 2025-02-24 15:34 | DVH ---
CHEST RADIOGRAPH Indication: SOB Technique: Single frontal view of the chest was obtained COMPARISON: CHEST PORTABLE on DOS: 06/28/21, CHEST TWO VIEWS ROUTINE on DOS: 05/26/21, CXRP on DOS: 03/25 FINDINGS: Lines and Tubes: None Lungs: Unchanged pulmonary vascular congestion Pleura: No effusion.No pneumothorax. Cardiomediastinal contours: Unremarkable Bones: Unremarkable IMPRESSION: Unchanged pulmonary vascular congestion.
[2025-02-24] MEDS ORDERED: MET50T PO (17:11)
[2025-02-24] MEDS ORDERED: FUROSEMIDE 20 MG/2 ML VIAL IV SCH (18:00)
[2025-02-24 18:20] LABS: Protein, Urine 26.7 mg/dL (1-14)
--- NOTE | 2025-02-24 19:04 | DVHPNRES ---
Progress Note Date Seen: Feb 24, 2025 Resident Creating Document: SERAFIN,MANDI RESIDENT Medical Necessity Reason Pt with a Central, PICC or Fol: No Subjective Review of Systems This is a 89-year-old female with past medical history of cervical spine arthritis, osteoarthritis of bilateral hands, glaucoma, hypertension, hyperlipidemia, hypothyroidism, presented to the ER with chief complain of headache, in the setting of severely elevated blood pressure. The headache began 4-5 months ago, worsening for the last 3 weeks. The pain is located in the temporal area, described as intermittent, aching, with the severity of 8/10. The pain is radiating from temporal area to the occipital area, down to neck and left arm. She also complains of associated double vision, difficulty maintaining balance. She reports that her double vision has been intermittent, binocular, without associated eye pain, ptosis. Reports subjective fever. She does not measure blood pressure at home and reports being compliant on medications. No history of trauma, fall, sick contact. She denies dizziness, photophobia, chest pain, tearing in the eyes or loss of consciousness. PMHx: Osteoarthritis, cervical spine arthritis, glaucoma, hypertension, hyperlipidemia, hypothyroidism, HFrEF (LVEF 30-40%), paroxysmal atrial fibrillation (chads Vasc 5) PSHx: Bilateral knee replacement, rotator cuff surgery, lumbar spinal stenosis surgery Family history: Positive for multiple family members with CVD and diabetes Social history: Smoked 2 packs for 10 years, quit in 2001, occasional alcohol use, no recreational drug use. Lives in house with family. Next of kin . Home medication: Nifedipine 30 mg, levothyroxine 75 mcg, simvastatin 40 mg Allergic history: No known allergies Patient seen and examined at bedside. Overnight events were reviewed. Patient is reported oh headache in the morning, BP was elevated Objective vital signs Vital Sign Date Time Temp Pulse Resp B/P (MAP) Pulse Ox O2 Delivery O2 Flow Rate FiO2 02/24/25 17:13 97.6 76 16 135/69 (91) 98 97.6 02/24/25 17:05 Room Air* 0 21 medications Current Medications Medications Dose Ordered Sig/Keiko Route Start Time Stop Time Status Last Admin Dose Admin Morphine Sulfate 2 mg Q4HPRN PRN IV 02/23/25 22:45 Nifedipine 60 mg DAILY PO 02/24/25 10:00 02/24/25 10:40 60 MG Atorvastatin Calcium 40 mg HS PO 02/24/25 22:00 Levothyroxine Sodium 75 mcg QAM@0600 PO 02/24/25 06:00 02/24/25 05:50 75 MCG Aspirin 81 mg DAILY PO 02/24/25 10:00 02/24/25 10:41 81 MG Furosemide 20 mg DAILY IV 02/25/25 10:00 UNV Latanoprost 1 drop HS EACHEYE 02/24/25 08:00 02/24/25 08:32 1 DROP Ondansetron HCl 4 mg Q4HPRN PRN IV 02/24/25 05:30 02/24/25 05:50 4 MG Losartan Potassium 25 mg DAILY PO 02/25/25 10:00 Acetaminophen 650 mg Q6HP PRN PO 02/24/25 14:45 Iron Sucrose 110 ml @ 110 mls/hr DAILY@1200 IV 02/25/25 12:00 03/01/25 12:59 Levalbuterol HCl 1.25 mg Q6HR NEB 02/24/25 18:00 Enoxaparin Sodium 70 mg DAILY SC 02/25/25 10:00 Examination Pt is lying on bed General Appearance: Alert, Oriented X3, Cooperative, Mild distress HEENT: Atraumatic, Mucous membranes moist/pink Respiratory: Clear to auscultation, Normal air movement, No added sounds Cardiovascular: Regular rate, Normal S1, Normal S2, No murmurs Abdominal/ : Active bowel sounds, Soft, no distention, no tenderness Extremities: No edema, Normal pulses, No tenderness/swelling Skin: No Significant rash, except past surgical scars Neuro: Normal speech, sensorimotor deficits none Psych/Mental Status: Mental status NL, Mood NL Nurse was there as chipper feeder during examination laboratory and microbiology Laboratory Tests 02/24/25 05:54 Test 02/24/25 05:54 Range/Units Serum Glucose 107 H 74-106 mg/dL Problem List/Assessment/Plan Problem List/Assessment/Plan Hypertensive urgency Headache likely d/t above Hypertensive heart disease with Heart failure with preserved/improved EF CT head WNL, 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 daily Losartan 25 mg daily Aspirin 81 p.o. daily Pain management with acetaminophen, morphine Strict I&O Monitor on telemetry Chronic kidney disease likely d/t hypertensive nephropathy creatinine downtrending Strict control of blood pressure Discussed avoiding nephrotoxins like NSAIDS, contrast Low salt diet, maintain hydration Repeat BMP Acute on chronic systolic congestive heart failure (HFrEF, LVEF 30-40%) Paroxysmal atrial fibrillation (chads Vasc 5) - secondary hypercoagulability state Currently on therapeutic enoxaparin. Discontinue rivaroxaban Ordered new echocardiogram. Pending optimization of GDMT carvedilol 3.125mg bid Losartan 25mg daily IV lasix given Hypothyroidism TSH 4.72 Continue home levothyroxine 75 mcg Normocytic Hypochromic Anemia likely d/t iron deficiency, r/o GI bleed Iron panel shows low iron, low transferrin saturation and low ferritin Stool occult blood ordered started on IV iron History of osteoarthritis History of glaucoma History of hyperlipidemia Continue atorvastatin 40 mg daily Continue latanoprost eye drops DIET: Cardiac DVT PROPHYLAXIS: Therapeutic enoxaparin CODE STATUS: Goals of care discussed with patient at bedside for more than 26 minutes. Full code DISPOSITION: Med/surge Patient's status and plan discussed with the patient. Plan discussed with: Patient, Other (RN) MANDI BETANCOURT RESIDENT Feb 24, 2025 19:04 RENE LOO RESIDENT Feb 24, 2025 20:52
[2025-02-24] MEDS: LEVALBUTEROL HCL 1.25 MG/3 ML NEB NEB SCH (19:35)
[2025-02-24] MEDS: MORPHINE SULFATE INJ 2 MG/ml SYRG IV PRN (20:15)
[2025-02-24] MEDS ORDERED: HYDROcodone-ACET 7.5/325MG TAB PO PRN (20:45)
[2025-02-24] MEDS: ATORVASTATIN 20 MG TAB PO SCH (22:26)
[2025-02-25] VITALS (9 sets, daily range): BP systolic 139–154; BP diastolic 58–64; PULSE 64–79; RESP 16–18; TEMP 36.5; O2SAT 96–100
[2025-02-25] MEDS: PANTOPRAZOLE 40 MG TAB PO SCH (06:19)
--- NOTE | 2025-02-25 09:29 | DVH ---
INDICATION: CKD TECHNIQUE: Multiple real-time sonographic images of the kidneys and bladder were obtained. COMPARISON: None FINDINGS: The right kidney measures 5 cm in length, which is normal in size. There is normal echogeni city of the right kidney. No hydronephrosis. 8 Mm right upper pole echogenic renal cyst. The left kidney measures 8 cm in length, which is normal in size. There is normal echogenicity of the left kidney. No hydronephrosis. No large intraluminal masses are seen in the bladder. Prior to voiding the bladder volume measures vo lume 299 cc. IMPRESSION: 1. Normal sonographic appearance of the kidneys. No hydronephrosis.
[2025-02-25] MEDS ORDERED: FUROSEMIDE 20 MG/2 ML VIAL IV SCH (10:00)
[2025-02-25 10:01] LABS: Nucleated Red Blood Cells % 0.2 %
[2025-02-25 10:03] LABS: Chloride 104 mmol/L (98-107); Sodium 141 mmol/L (136-145)
[2025-02-25 10:04] LABS: Anion Gap 10 (5-15); Calcium 9.4 mg/dL (8.7-10.4); Carbon Dioxide 27 mmol/L (20-31)
[2025-02-25] MEDS: ENOXAPARIN SOD 80 MG/0.8ML SYRINGE SC SCH (10:04)
[2025-02-25] MEDS: METOPROLOL TARTRATE 50 MG TAB PO SCH (10:04)
[2025-02-25 10:05] LABS: Hematocrit 29.5 % (36.0-46.0); Hemoglobin 9.3 g/dL (12.2-16.2); Mean Corpuscular Hemoglobin 25.5 pg (28.0-32.0); Mean Corpuscular Volume 80.4 fL (80.0-100.0)
[2025-02-25] MEDS: LOSARTAN POTASSIUM 25 MG TAB PO SCH (10:05)
[2025-02-25 10:09] LABS: BUN/Creatinine Ratio 9.4 (10.0-20.0); Blood Urea Nitrogen 12 mg/dL (9-23)
[2025-02-25] MEDS ORDERED: LOS25T PO (10:25)
[2025-02-25 10:26] LABS: Glucose 108 mg/dL (74-106); Potassium 3.4 mmol/L (3.5-5.1)
[2025-02-25] MEDS ORDERED: IRON SUCROSE COMPLEX 110 ML IV SCH (12:00)
--- NOTE | 2025-02-25 15:57 | DVHDSRES ---
Discharge Summary Date of Admission Resident Creating Document: MANDI BETANCOURT Feb 23, 2025 at 22:43 Date of Discharge: Feb 25, 2025 Admitting Diagnosis Hypertensive urgency Labs/Diagnostic Data: Laboratory Results Test 02/25/25 09:57 02/25/25 09:27 02/24/25 09:00 02/24/25 08:51 Stool Occult Blood Negative (Negative) Stool Occult Blood Sample #3 (Negative) White Blood Count 6.7 10^3/uL (4.4-10.8) Red Blood Count 3.67 10^6/uL (4.0-5.20) Hemoglobin 9.3 g/dL (12.2-16.2) Hematocrit 29.5 % (36.0-46.0) Mean Corpuscular Volume 80.4 fL (80.0-100.0) Mean Corpuscular Hemoglobin 25.5 pg (28.0-32.0) Mean Corpuscular Hemoglobin Concent 31.7 g/dL (32.0-36.0) Red Cell Distribution Width 17.4 % (11.8-14.3) Platelet Count 459 10^3/uL (140-450) Mean Platelet Volume 7.6 fL (6.9-10.8) Neutrophils (%) (Auto) 78.2 % (37.0-80.0) Lymphocytes (%) (Auto) 11.4 % (10.0-50.0) Monocytes (%) (Auto) 6.8 % (0.0-12.0) Eosinophils (%) (Auto) 2.8 % (0.0-7.0) Basophils (%) (Auto) 0.8 % (0.0-2.0) Neutrophils # (Auto) 5.3 10 ^3/uL (1.6-8.6) Lymphocytes # (Auto) 0.8 10 ^3/uL (0.4-5.4) Monocytes # (Auto) 0.5 10 ^3/uL (0-1.3) Eosinophils # (Auto) 0.2 10 ^3/uL (0-0.8) Basophils # (Auto) 0.1 10 ^3/uL (0-0.2) Nucleated Red Blood Cells 0.2 % Sodium Level 141 mmol/L (136-145) Potassium Level 3.4 mmol/L (3.5-5.1) Chloride Level 104 mmol/L (98-107) Carbon Dioxide Level 27 mmol/L (20-31) Anion Gap 10 (5-15) Blood Urea Nitrogen 12 mg/dL (9-23) Creatinine 1.28 mg/dL (0.550-1.02) Glomerular Filtration Rate Calc 40 mL/min (>90) BUN/Creatinine Ratio 9.4 (10.0-20.0) Serum Glucose 108 mg/dL (74-106) Calcium Level 9.4 mg/dL (8.7-10.4) Parathyroid Hormone (Intact) 75.3 pg/mL (18.4-80.1) Haptoglobin 291 mg/dL (41-333) Urine Color Yellow (Yellow) Urine Clarity Clear (Clear) Urine pH 5.5 (5.0-9.0) Urine Specific Cardinal 1.015 (1.001-1.035) Urine Protein Normal (Negative) Urine Ketones Negative (Negative) Urine Blood Normal /uL (Negative) Urine Nitrite Negative (Negative) Urine Bilirubin Negative (Negative) Urine Urobilinogen Normal mg/dL (Negative) Urine Leukocyte Esterase Negative /uL (Negative) Urine Creatinine 85.78 mg/dL (30.0-125.0) Urine Protein/Creatinine Ratio 0.31 Urine Glucose Normal mg/dL (Normal) Urine Total Protein 26.7 mg/dL (1-14) Test 02/24/25 05:54 02/23/25 22:43 02/23/25 15:47 02/23/25 08:51 Reticulocyte Count (auto) 2.25 % (0.5-1.5) Total Bilirubin 0.6 mg/dL (0.2-1.0) Aspartate Amino Transferase (AST) 17 U/L (13-40) Alanine Aminotransferase (ALT) < 9 U/L (7-40) Alkaline Phosphatase 81 U/L (46-116) Lactate Dehydrogenase 209 U/L (120-246) Total Protein 7.3 g/dL (5.7-8.2) Albumin 4.4 g/dL (3.2-4.8) Vitamin B12 Level 577 pg/mL (211-911) Folic Acid 11.05 ng/mL (>5.38) Prothrombin Time 10.6 sec (9.3-11.8) Prothrombin Time INR 1.00 (0.9-1.15) Activated Partial Thromboplast Time 29.6 SEC (24.5-34.5) Iron Level 18 ug/dL (50-170) Total Iron Binding Capacity 340 ug/dL (250-425) Percent Iron Saturation 5.3 % (15-50) Ferritin 10.6 ng/mL (10-291) Hemoglobin A1c 6.1 % A1C (<5.7) Phosphorus Level 3.6 mg/dL (2.4-5.1) Magnesium Level 2.2 mg/dL (1.6-2.6) Troponin I High Sensitivity 5 ng/L (</=34) B-Type Natriuretic Peptide 201.80 pg/mL (0-100) Triglycerides Level 69 mg/dL (< 150) Cholesterol Level 159 mg/dL (< 200) LDL Cholesterol 33 mg/dL (< 100) HDL Cholesterol 103 mg/dL (40-59) Lipase 31 U/L (12-53) Thyroid Stimulating Hormone (TSH) 4.72 uIU/mL (0.55-4.78) Urine Opiates Screen Neg (NEGATIVE) Urine Fentanyl Screen Neg (NEGATIVE) Urine Barbiturates Screen Neg (NEGATIVE) Urine Phencyclidine Screen Neg (NEGATIVE) Urine Amphetamines Screen Neg (NEGATIVE) Urine Benzodiazepines Screen Neg (NEGATIVE) Urine Cocaine Screen Neg (NEGATIVE) Urine Cannabinoids Screen Neg (NEGATIVE) Other Laboratory Tests 02/25/25 09:27 Brief Hx & Hospital Course: This is a 89-year-old female with past medical history of cervical spine arthritis, osteoarthritis of bilateral hands, glaucoma, hypertension, hyperlipidemia, hypothyroidism, presented to the ER with chief complain of headache, in the setting of severely elevated blood pressure. The headache began 4-5 months ago, worsening for the last 3 weeks. The pain is located in the temporal area, described as intermittent, aching, with the severity of 8/10. The pain is radiating from temporal area to the occipital area, down to neck and left arm. She also complains of associated double vision, difficulty maintaining balance. She reports that her double vision has been intermittent, binocular, without associated eye pain, ptosis. Reports subjective fever. She does not measure blood pressure at home and reports being compliant on medications. No history of trauma, fall, sick contact. She denies dizziness, photophobia, chest pain, tearing in the eyes or loss of consciousness. PMHx: Osteoarthritis, cervical spine arthritis, glaucoma, hypertension, hyperlipidemia, hypothyroidism, HFrEF (LVEF 30-40%), paroxysmal atrial fibrillation (chads Vasc 5) PSHx: Bilateral knee replacement, rotator cuff surgery, lumbar spinal stenosis surgery Family history: Positive for multiple family members with CVD and diabetes Social history: Smoked 2 packs for 10 years, quit in 2001, occasional alcohol use, no recreational drug use. Lives in house with family. Next of kin . Home medication: Nifedipine 30 mg, levothyroxine 75 mcg, simvastatin 40 mg Allergic history: No known allergies Patient was diagnosed with hypertensive urgency, chronic hypertensive heart disease with improved LVEF 65% (previously 30-40%), grade 1 diastolic dysfunction. Patient was put on telemetry monitoring. Old right frontal infarct without any acute abnormality was found on CT. She was managed with nifedipine, losartan, aspirin and pain control was achieved with acetaminophen and morphine. Enoxaparin was continued for AFib, rivaroxaban was discontinued. IV Lasix was administered for fluid overload. Iron-deficiency was identified and treated with IV iron, stool occult blood test was negative. She is discharged on stable condition with follow up for the GDMT optimization. Losartan 25 mg was added to her medication regimen. Examination Pt is lying on bed General Appearance: Alert, Oriented X3, Cooperative, Mild distress HEENT: Atraumatic, Mucous membranes moist/pink Respiratory: Clear to auscultation, Normal air movement, No added sounds Cardiovascular: Regular rate, Normal S1, Normal S2, No murmurs Abdominal/ : Active bowel sounds, Soft, no distention, no tenderness Extremities: No edema, Normal pulses, No tenderness/swelling Skin: No Significant rash, except past surgical scars Neuro: Normal speech, sensorimotor deficits none Psych/Mental Status: Mental status NL, Mood NL Nurse was there as medical advisor during examination Case discussed with Operations or Procedures PATIENT: PURNIMA NARAYANAN ACCT: [id number] UNIT: [id number] : 1935 LOC: [facility] ROOM / BED: 027T / A AGE / SEX: 89 / F ADM STATUS: ADM IN SERVICE 0800 ORDERING PHYSICIAN: RENE LOO RESIDENT PROCEDURE(s): KIDUS - KIDNEY REASON: CKD ORDER NUMBER(s): [id number], ACCESSION NUMBER(s): [id number] INDICATION: CKD TECHNIQUE: Multiple real-time sonographic images of the kidneys and bladder were obtained. COMPARISON: None FINDINGS: The right kidney measures 5 cm in length, which is normal in size. There is normal echogenicity of the right kidney. No hydronephrosis. 8 Mm right upper pole echogenic renal cyst. The left kidney measures 8 cm in length, which is normal in size. There is normal echogenicity of the left kidney. No hydronephrosis. No large intraluminal masses are seen in the bladder. Prior to voiding the bladder volume measures volume 299 cc. IMPRESSION: 1. Normal sonographic appearance of the kidneys. No hydronephrosis. ENT: PURNIMA NARAYANAN ACCT: [id number] UNIT: [id number] : 1935 [facility]GE / SEX: 89 / F ADM STATUS: ADM IN SERVICE 1429 ORDERING PHYSICIAN: RENE LOO RESIDENT PROCEDURE(s): CXR1 - CHEST XRAY 1 VIEW REASON: SOB ORDER NUMBER(s): [id number], ACCESSION NUMBER(s): [id number] CHEST RADIOGRAPH Indication: SOB Technique: Single frontal view of the chest was obtained COMPARISON: CHEST PORTABLE on DOS: 06/28/21, CHEST TWO VIEWS ROUTINE on DOS: 05/26/21, CXRP on DOS: 02/12/21 FINDINGS: Lines and Tubes: None Lungs: Unchanged pulmonary vascular congestion Pleura: No effusion.No pneumothorax. Cardiomediastinal contours: Unremarkable Bones: Unremarkable IMPRESSION: Unchanged pulmonary vascular congestion. ENT: PURNIMA NARAYANAN ACCT: [id number] UNIT: [id number] : 1935 LOC: OVERFLOW ROOM / BED: [facility] / A AGE / SEX: 89 / F ADM STATUS: ADM IN SERVICE 0700 ORDERING PHYSICIAN: JOSIAH MARCUS RESIDENT PROCEDURE(s): CARCL - CAROTID DUPLX W COLOR DOP REASON: R/o carotid thromboembolism embolism ORDER NUMBER(s): [id number], ACCESSION NUMBER(s): [id number] CLINICAL HISTORY: R/o carotid thromboembolism embolism TECHNIQUE: Horne-scale, Color and Duplex Doppler imaging of the bilateral carotid systems was performed. COMPARISON: CT HEAD WITHOUT CONTRAST on DOS: 02/23/25, HEAD WITHOUT CONTRAST on DOS: 06/28/21, BRAIN HEAD WO CONTRAST on DOS: 05/24/21, HEAD WITHOUT CONTRAST on DOS: 05/21/21 Findings: Right Carotid system: There is plaque present in the right carotid system. Left Carotid system: There is plaque present in the left carotid system. The following flow velocities were obtained (cm/sec). Right Carotid System: ICA PSV: 75 cm/sec ICA PDV: 12 cm/sec ICA/CCA Ratio: 1.1 Left Carotid System: ICA PSV: 103 cm/sec ICA PDV: 18 cm/sec ICA/CCA Ratio: 1.5 The right and left common carotid and external carotid arteries are patent. There is antegrade flow in both vertebral arteries and external carotid arteries. IMPRESSION: LESS THAN 50% RIGHT ICA NARROWING. LESS THAN 50% LEFT ICA NARROWING. Estimation of carotid stenosis is based on velocity parameters that correlate the residual internal carotid diameter with that of the more distal vessel in accordance with the [place] Symptomatic Carotid Endarterectomy Trial (NASCET). ATED BY: MARIMAR BANEGAS MD DICTATED DATE/TIME: 02/24/25 0937 PATIENT: PURNIMA NARAYANAN ACCT: [id number] UNIT: [id number] : 1935 LOC: ER ROOM / BED: / AGE / SEX: 89 / F ADM STATUS: REG ER SERVICE 1612 ORDERING PHYSICIAN: GERARDO FERNÁNDEZ MD PROCEDURE(s): HWOCT - HEAD WITHOUT CONTRAST REASON: microvascular ORDER NUMBER(s): [id number], ACCESSION NUMBER(s): [id number] EXAM: CT HEAD WITHOUT CONTRAST INDICATION: microvascular TECHNIQUE: CT of the head without intravenous contrast. Radiation Dose Information: CT Dose: CTDI volume is 53 mGy. Dose-length product is 848 mGy*cm The dose indicators for CT are the volume Computed Tomography (CT) Dose Index (CTDIvol) and the Dose Length Product (DLP), and are measured in units of mGy and mGy-cm, respectively. These indicators are not patient dose, but values generated from the CT scanner acquisition factors. The report includes radiation exposure data for exposures received during this examination. COMPARISON: 06/28/2021 FINDINGS: There is no evidence of acute intracranial hemorrhage, extra-axial collection, mass effect, midline shift, herniation or hydrocephalus. OLD RIGHT FRONTAL LOBE INFARCT SEEN The ventricles, sulci and cisterns are age appropriate. The horne-white differentiation is intact. Patchy periventricular and subcortical white matter hypoattenuation is nonspecific but may be related to small vessel ischemic disease. The visualized paranasal sinuses and mastoid air cells are clear. The surrounding soft tissues and osseous structures are unremarkable. IMPRESSION: 1. No acute intracranial abnormality. Condition at Discharge: Stable Final Diagnosis/Problems List Hypertensive urgency Headache likely d/t above Hypertensive heart disease with Heart failure with preserved/improved EF Chronic kidney disease likely d/t hypertensive nephropathy Acute on chronic systolic congestive heart failure (HFrEF, LVEF 30-40%) Paroxysmal atrial fibrillation (chads Vasc 5) - secondary hypercoagulability state Hypothyroidism Normocytic Hypochromic Anemia likely d/t iron deficiency, r/o GI bleed History of osteoarthritis History of glaucoma History of hyperlipidemia Discharge Disposition: Home Discharge Instruct/Medications Diet: Cardiac 2g Na,low cholest Activity: Light activity Follow Up/Referral: fu with pcp in 1 week Medications: continue meds as prescribed Scheduled Aspirin (Aspirin Low Strength), 81 MG PO DAILY Levothyroxine Sodium (Levothyroxine Sodium), 1 TAB PO DAILYPRN, (Reported) Losartan Potassium (Losartan Potassium), 25 MG PO DAILY Metoprolol Tartrate (Lopressor Tablet), 1 TAB PO BID, (Reported) Nifedipine (Nifedipine Er), 1 TAB PO DAILY, (Reported) Rivaroxaban (Xarelto Tablet), 15 MG PO QPM Miscellaneous Medications Simvastatin (Simvastatin), 1 TAB PO, (Reported) Discharge Statement: "Patient was advised to return to the ER or call 911 if any headaches, dizziness, shortness of breath, chest pain, abdominal pain, bleeding, fevers, or worsening of medical condition. Patient was counseled about treatment plan, medications, possible side effects, patientverbalized understanding. All questions were answered to the best of my ability. This discharge took greater then 30 minutes in planning, reviewing documentation, counseling the patient, and discussing with other team members." ASSESSMENT ASSESSMENT Assessment hypertensive urgency MANDI BETANCOURT RESIDENT Feb 25, 2025 15:57
== END 2025-02-25 12:09 | disposition home or self-care (01) | DRG 304 ==
LOC: ER 15:28 → OVERFLOW 22:43 → TELE-WESTW 02-24 16:42
PROVIDERS: ADMIT Internal Medicine Geriatric Medicine; ATTEND Internal Medicine Geriatric Medicine
DX: I16.0 Hypertensive urgency (principal); I50.43 Acute on chronic combined systolic (congestive) and diastolic (congestive) heart failure; D68.69 Other thrombophilia; N17.9 Acute kidney failure, unspecified; Z83.3 Family history of diabetes mellitus; D50.9 Iron deficiency anemia, unspecified; I13.0 Hypertensive heart and chronic kidney disease with heart failure and stage 1 through stage 4 chronic kidney disease, or unspecified chronic kidney disease; I48.0 Paroxysmal atrial fibrillation; E03.9 Hypothyroidism, unspecified; D64.9 Anemia, unspecified; G90.89 Other disorders of autonomic nervous system; E78.5 Hyperlipidemia, unspecified; N18.9 Chronic kidney disease, unspecified; E11.22 Type 2 diabetes mellitus with diabetic chronic kidney disease; Z79.899 Other long term (current) drug therapy; Z87.891 Personal history of nicotine dependence; Z90.710 Acquired absence of both cervix and uterus; Z79.82 Long term (current) use of aspirin
CPT/HCPCS: 36415; 70450; 71045; 76775; 80048; 80053; 80061; 80307; 81003; 82270; 82570; 82607; 82728; 82746; 83010; 83036; 83540; 83550; 83615; 83690; 83735; 83880; 83970; 84100; 84156; 84443; 84484; 85025; 85045; 85610; 85730; 93005; 93306; 93886; 94640; G0378; J2405